=== PATIENT | male | born 1965 | race Caucasian/White ===

== ENCOUNTER 2018-09-16 10:55 | Emergency (ER) | payer OTHER ==
--- OUTSIDE RECORDS SUMMARY | 2018-09-16 11:03 | XMS REPORT ---
:1965 [facility] Address [address] [place] [address] Care Team Providers Name Role Phone Unavailable Unavailable Unavailable Problems This patient has no known problems. Allergies, Adverse Reactions, Alerts This patient has no known allergies or adverse reactions. Medications This patient has no known medications.
--- NOTE | 2018-09-16 11:29 | RAD REPORT ---
EXAM DESCRIPTION: CT - Stone Protocol - 09/16/2018 11:17 am CLINICAL HISTORY: Flank pain. lower abd pain, sudden onset COMPARISON: No comparisons TECHNIQUE: Axial images were obtained without oral or IV contrast. Lack of contrast limits solid org an and vascular assessment. The [id number] spans the entirety of the system partially obscuring uppermost abdomen and lung bases. Coronal reformatted images were obtained and reviewed. All CT scans are performed using dose optimization technique as appropriate and may include automated exposure control or mA/KV adjustment according to patient size. FINDINGS: The lower lung whalen are clear. Cholecystectomy. Imaged portions of the liver and spleen show no suspicious findings on non-contrast imaging. The panc reas and adrenal glands are normal. No pathologic lymphadenopathy in the abdomen or pelvis. No urinary tract stones or obstructive uropathy. No bowel obstruction, free air, free fluid or abscess. Normal appendix noted. Vacuum disc degeneration with degenerative changes in mild anterolisthesis of L5 on S1. IMPRESSION: No urinary tract stones or obstructive uropathy.
[2018-09-16] MEDS ORDERED: MORPHINE 4 MG/ML SYR ONE ×2 (11:30→12:42)
[2018-09-16] MEDS ORDERED: ONDANSETRON 4 MG/2 ML VIAL ONE (11:30)
[2018-09-16 11:33] LABS: Absolute Lymphocytes (CBC) 1.1 K/uL (0.7-4.9); Basophils % 0.4 % (0-1.3); Hematocrit 42.7 % (39.6-49.0); MPV 7.8 fL (7.6-11.3)
[2018-09-16 11:49] LABS: Albumin 4.2 g/dL (3.4-5.0); Bilirubin Direct 0.2 mg/dL (0-0.2); Bilirubin Total 0.8 mg/dL (0.2-1.0); Potassium 3.6 mmol/L (3.5-5.1); Protein, Total 7.7 g/dL (6.4-8.2)
[2018-09-16] MEDS ORDERED: NA CHLORIDE 0.9% 1,000 ML ONE ×2 (12:08→13:39)
--- NOTE | 2018-09-16 12:39 | RAD REPORT ---
EXAM DESCRIPTION: CTAbdomen Pelvis W Contrast - 09/16/2018 12:22 pm CLINICAL HISTORY: Abdominal pain. elevated lactate, IV contrast only, eval for vascular COMPARISON: Stone Protocol dated 09/16/2018 TECHNIQUE: Biphasic CT imaging of the abdomen and pelvis was performed with 100 ml non-ionic IV cont rast. All CT scans are performed using dose optimization technique as appropriate and may include automated exposure control or mA/KV adjustment according to patient size. FINDINGS: The lung bases are clear. Cholecystectomy. The liver, spleen, pancreas, adrenal glands and kidneys are within normal limits. No bowel obstruction, free air, free fluid or abscess. The appendix is normal. No evidence of signi ficant lymphadenopathy. No suspicious bony findings. IMPRESSION: No acute intra-abdominal or pelvic finding.
[2018-09-16 15:14] LABS: Urine Bacteria <20 /HPF (NONE SEEN); Urine Culture Reflex Order NOT NEEDED; Urine RBC <5 /HPF (NONE SEEN)
[2018-09-16 15:26] LABS: Urine Blood NEGATIVE (NEG); Urine Glucose NEGATIVE (NEG); Urine Protein NEGATIVE (NEG); Urine Specific Gravity 1.015 (1.005-1.030); Urine pH 8.5 (5.0-7.0)
--- NOTE | 2018-09-16 15:34 | ER ---
Nurse's Notes [facility] Name: Fred Gautam Age: 53 yrs Sex: Male : 1965 Arrival Date: 09/16/2018 Time: 10:59 Bed 6 Private MD: None, None Diagnosis: Lower abdominal pain, unspecified;Dehydration Presentation: 09/16 11:14 Acuity: MARTITA 2 sg 11:14 Presenting complaint: Patient states: started having stomach pain last night, it comes tw2 and goes. Transition of care: patient was not received from another setting of care. Onset of symptoms was September 16, 2018. Risk Assessment: Do you want to hurt yourself or someone else? Patient reports no desire to harm self or others. Care prior to arrival: None. 11:14 Method Of Arrival: Wheelchair tw2 11:29 Initial Sepsis Screen: Does the patient meet any 2 criteria? No. Patient's initial tw2 sepsis screen is negative. Does the patient have a suspected source of infection? No. Patient's initial sepsis screen is negative. Triage Assessment: 11:14 General: Appears uncomfortable, Behavior is anxious. Pain: Complains of pain in tw2 abdomen. GI: Reports lower abdominal pain, upper abdominal pain. Derm: Skin is diaphoretic. Historical: - Allergies: 11:22 No Known Allergies; tw2 - Home Meds: 11:22 Radiation for chemo [Active]; tw2 11:28 Plavix 75 mg Oral tab 1 tab once daily [Active]; Keppra 500 mg Oral tab 2 tabs 2 times tw2 per day [Active]; furosemide 20 mg Oral tab 1 tab once daily [Active]; propranolol 10 mg Oral tab 1 tab 2 times per day [Active]; pravastatin 20 mg oral tab 1 tab every other day [Active]; - PMHx: 11:22 CVA (2005); Cancer, prostrate; tw2 - PSHx: 11:28 Appendectomy; Cholecystectomy; tw2 - Immunization history:: Adult Immunizations. - Social history:: Smoking status: . - Family history:: not pertinent. - Ebola Screening: : Patient denies travel to an Ebola-affected area in the 21 days before illness onset. - Hospitalizations: : No recent hospitalization is reported. Screenin:28 Abuse screen: Denies threats or abuse. Nutritional screening: No deficits noted. tw2 Tuberculosis screening: No symptoms or risk factors identified. Fall Risk Secondary diagnosis (15 points) impaired mobility, CVA. Assessment: 11:29 General: Appears uncomfortable, Behavior is anxious. Pain: Complains of pain in tw2 abdomen. Neuro: Level of Consciousness is awake, alert, obeys commands, Oriented to person, place, time, situation. Cardiovascular: Heart tones S1 S2 Patient's skin is warm and dry. Respiratory: Airway is patent Respiratory effort is even, unlabored, Respiratory pattern is regular, symmetrical, Breath sounds are clear bilaterally. GI: Bowel sounds present X 4 quads. Abdomen is tender to palpation X 4 quads. Reports lower abdominal pain, upper abdominal pain. : No signs and/or symptoms were reported regarding the genitourinary system. EENT: No signs and/or symptoms were reported regarding the EENT system. Derm: No signs and/or symptoms reported regarding the dermatologic system. Musculoskeletal: Range of motion: limited in right shoulder, right elbow and right wrist. 11:30 Reassessment: pts spouse reports RIGHT sided weakness from previous CVA. tw2 12:59 Reassessment: Patient appears in no apparent distress at this time. Patient and/or tw2 family updated on plan of care and expected duration. Pain level reassessed. Patient is alert, oriented x 3, equal unlabored respirations, skin warm/dry/pink. 15:13 Reassessment: Patient appears in no apparent distress at this time. Patient and/or rv family updated on plan of care and expected duration. Pain level reassessed. Patient is alert, oriented x 3, equal unlabored respirations, skin warm/dry/pink. lactate came back normal. Vital Signs: 11:16 BP 143 / 121; Pulse 110; Resp 19; Temp 97.9(O); Pulse Ox 100% ; Weight 113.4 kg (R); tw2 Height 6 ft. 2 in. (187.96 cm); Pain 10/10; 11:26 Pulse 88; Resp 17; Pulse Ox 100% on R/A; sg 12:58 BP 154 / 87; Pulse 74; Resp 17; Pulse Ox 100% on R/A; tw2 14:20 BP 137 / 83; Pulse 83; Resp 17; Pulse Ox 98% on R/A; sg 15:12 BP 139 / 82; Pulse 94; Resp 16; Pulse Ox 98% on R/A; rv 15:45 BP 133 / 84; Pulse 88; Resp 18; Temp 98; Pulse Ox 100% on R/A; rv 11:16 Body Mass Index 32.10 (113.40 kg, 187.96 cm) tw2 ED Course: 10:59 Patient arrived in ED. dp 11:00 None, None is Private Physician. dp 11:00 Deepak Garcia MD is Attending Physician. rn 11:14 Triage completed. iw 11:14 Arm band placed on. tw2 11:14 Bed in low position. Call light in reach. Placed in gown. provider at bedside at this tw2 time. monitoring and evaluation advisor on. Pulse ox on. NIBP on. 11:16 Mere Barth RN is Primary Nurse. tw2 11:20 CT Stone Protocol In Process Unspecified. EDMS 12:25 CT Abd/Pelvis - IV Contrast Only In Process Unspecified. EDMS 13:40 Repeat lab(s) drawn. by ED staff, sent to lab. sg 15:46 No provider procedures requiring assistance completed. IV discontinued, intact, rv bleeding controlled, No redness/swelling at site. Pressure dressing applied. Administered Medications: 11:25 Drug: morphine 4 mg Route: IVP; Site: left antecubital; sg 12:00 Follow up: Response: No adverse reaction; Pain is decreased tw2 11:25 Drug: Zofran 4 mg Route: IVP; Site: left antecubital; sg 12:00 Follow up: Response: No adverse reaction; Nausea is decreased tw2 12:01 Drug: NS 0.9% 1000 ml Route: IV; Rate: 1 bolus; Site: left antecubital; sg 13:17 Follow up: Response: No adverse reaction; IV Status: Completed infusion; IV Intake: tw2 1000ml 12:26 Drug: morphine 4 mg Route: IVP; Site: left antecubital; tw2 13:17 Follow up: Response: No adverse reaction; Pain is decreased tw2 13:24 Drug: NS 0.9% 1000 ml Route: IV; Rate: 1 bolus; Site: left antecubital; tw2 Intake: 13:17 IV: 1000ml; Total: 1000ml. tw2 Outcome: 15:31 Discharge ordered by . rn 15:46 Discharged to home via wheelchair, with family. rv 15:46 Condition: improved 15:46 Discharge instructions given to patient, family, Instructed on discharge instructions, follow up and referral plans. medication usage, Demonstrated understanding of instructions, follow-up care, medications, Prescriptions given X 1. 15:47 Patient left the ED. rv Signatures: Dispatcher [employer] EDMS Monty Dallas RN RN sg Maribel Rankin RN RN Deepak Garcia MD MD rn Wise, Tara, RN RN 2 Keven Carpio RN RN Cordell Pascal Corrections: (The following items were deleted from the chart) 11:16 11:14 Acuity: MARTITA 3 iw 18 11:17 General: Appears uncomfortable, Behavior is anxious, tw2 tw2 18 11:17 Pain: Complains of pain in abdomen tw2 18 11:17 GI: Reports lower abdominal pain, upper abdominal pain, tw2 tw03 31: 11:17 Derm: Skin is diaphoretic, tw2 tw2
--- NOTE | 2018-09-16 15:34 | EDPHYS ---
Physician Documentation [facility] Name: Fred Gautam Age: 53 yrs Sex: Male : 1965 Arrival Date: 09/16/2018 Time: 10:59 Bed 6 Private MD: None, None ED Physician Deepak Garcia HPI: 09/16 11:22 This 53 yrs old Male presents to ER via Unassigned with complaints of rn Abdominal Pain, Pain All Over. 11:22 The patient presents with abdominal pain in the lower abdomen. Onset: The rn symptoms/episode began/occurred today. The symptoms do not radiate. Associated signs and symptoms: none. Pertinent negatives: chest pain, fever, shortness of breath, testicular pain, vomiting. Modifying factors: The symptoms are alleviated by nothing, the symptoms are aggravated by touching the area. Severity of pain: At its worst the pain was moderate in the emergency department the pain is unchanged. The patient has not experienced similar symptoms in the past. The patient has not recently seen a physician. Historical: - Allergies: 11:22 No Known Allergies; tw2 - Home Meds: 11:22 Radiation for chemo [Active]; tw2 11:28 Plavix 75 mg Oral tab 1 tab once daily [Active]; Keppra 500 mg Oral tab 2 tabs 2 times tw2 per day [Active]; furosemide 20 mg Oral tab 1 tab once daily [Active]; propranolol 10 mg Oral tab 1 tab 2 times per day [Active]; pravastatin 20 mg oral tab 1 tab every other day [Active]; - PMHx: 11:22 CVA (2005); Cancer, prostrate; tw2 - PSHx: 11:28 Appendectomy; Cholecystectomy; tw2 - Immunization history:: Adult Immunizations. - Social history:: Smoking status: . - Family history:: not pertinent. - Ebola Screening: : Patient denies travel to an Ebola-affected area in the 21 days before illness onset. - Hospitalizations: : No recent hospitalization is reported. ROS: 11:22 Constitutional: Negative for fever, chills, and weight loss, Eyes: Negative for injury, rn pain, redness, and discharge, Cardiovascular: Negative for chest pain, palpitations, and edema, Respiratory: Negative for shortness of breath, cough, wheezing, and pleuritic chest pain, Abdomen/GI: + lower abd pain Back: Negative for injury and pain, : Negative for injury, bleeding, discharge, and swelling, MS/Extremity: Negative for injury and deformity, Skin: Negative for injury, rash, and discoloration, Neuro: Negative for headache, weakness, numbness, tingling, and seizure. Exam: 11:22 Constitutional: This is a well developed, well nourished patient who is awake, alert, rn appears in acute pain Head/Face: Normocephalic, atraumatic. Eyes: Pupils equal round and reactive to light, extra-ocular motions intact. Lids and lashes normal. Conjunctiva and sclera are non-icteric and not injected. Cornea within normal limits. Periorbital areas with no swelling, redness, or edema. ENT: MMM Cardiovascular: tachycardic, regular, no murmur Respiratory: Mild tachypnea, clear bilaterally Abdomen/GI: soft, + tender in lower abdomen, no rebound or masses MS/ Extremity: Pulses equal, no cyanosis. Neurovascular intact. Full, normal range of motion. Equal circumference. Neuro: Awake and alert, GCS 15, oriented to person, place, time, and situation. Cranial nerves II-XII grossly intact. Motor strength 5/5 in all extremities. Sensory grossly intact. Vital Signs: 11:16 BP 143 / 121; Pulse 110; Resp 19; Temp 97.9(O); Pulse Ox 100% ; Weight 113.4 kg (R); tw2 Height 6 ft. 2 in. (187.96 cm); Pain 10/10; 11:26 Pulse 88; Resp 17; Pulse Ox 100% on R/A; sg 12:58 BP 154 / 87; Pulse 74; Resp 17; Pulse Ox 100% on R/A; tw2 14:20 BP 137 / 83; Pulse 83; Resp 17; Pulse Ox 98% on R/A; sg 15:12 BP 139 / 82; Pulse 94; Resp 16; Pulse Ox 98% on R/A; rv 15:45 BP 133 / 84; Pulse 88; Resp 18; Temp 98; Pulse Ox 100% on R/A; rv 11:16 Body Mass Index 32.10 (113.40 kg, 187.96 cm) tw2 MDM: 11:00 Patient medically screened. rn 15:29 Differential diagnosis: bowel obstruction, gastritis, gastroesophageal reflux disease, rn non-specific abd pain, pancreatitis, Ureterolithiasis, urinary tract infection. Data reviewed: vital signs, nurses notes, lab test result(s), radiologic studies, CT scan, and as a result, I will discharge patient. Counseling: I had a detailed discussion with the patient and/or guardian regarding: the historical points, exam findings, and any diagnostic results supporting the discharge/admit diagnosis, lab results, radiology results, the need for outpatient follow up, to return to the emergency department if symptoms worsen or persist or if there are any questions or concerns that arise at home. Response to treatment: the patient's symptoms have markedly improved after treatment, the patient's condition has returned to base line, the patient is now symptom free, patient is well hydrated. and as a result, I will discharge patient. Special discussion: Based on the patient's Hx, exam, and Dx evaluation, there is no indication for emergent surgery or inpatient Tx. It is understood by the patient/guardian that if the Sx's persist or worsen they need to return immediately for re-evaluation. I discussed with the patient/guardian in detail that at this point there is no indication for admission to the hospital. It is understood, however, that if the symptoms persist or worsen the patient needs to return immediately for re-evaluation. ED course: Lactate was elevated, thought to be from dehydration, given 2 L bolus and pain meds after [address] abdomen with and without contrast, repeat lactate normal. Pain free. will dc home with pain meds and instructions for fluid intake and pcp f/u. . 09/16 11: Order name: Basic Metabolic Panel; Complete Time: rn 09/16 11:06 Order name: CBC with Diff; Complete Time: 09/16 11:06 Order name: Creatinine for Radiology; Complete Time: rn 09/16 11:06 Order name: Hepatic Function; Complete Time: rn 09/16 11:06 Order name: Lipase; Complete Time: 09/16 11:06 Order name: Lactate; Complete Time: 09/16 11:06 Order name: CT Stone Protocol; Complete Time: : rn 09/16 11:06 Order name: Urine Culture rn 09/16 11:06 Order name: Urine Microscopic Only; Complete Time: 15:32 rn 09/16 11:52 Order name: CT Abd/Pelvis - IV Contrast Only; Complete Time: 12:41 rn 09/16 14:28 Order name: Urine Dipstick--Ancillary (enter results); Complete Time: 15:32 em1 09/16 15:00 Order name: Lactate Sepsis 2 HR Follow-up; Complete Time: 15:04 EDMS 09/16 11:06 Order name: IV Saline Lock; Complete Time: 11: rn 09/16 11:06 Order name: Labs collected and sent; Complete Time: 11: rn 09/16 11:06 Order name: Urine Dipstick-Ancillary (obtain specimen); Complete Time: 14: rn 09/16 11:06 Order name: Bladder Scanner; Complete Time: 11:10 rn Administered Medications: 11:25 Drug: morphine 4 mg Route: IVP; Site: left antecubital; sg 12:00 Follow up: Response: No adverse reaction; Pain is decreased tw2 11:25 Drug: Zofran 4 mg Route: IVP; Site: left antecubital; sg 12:00 Follow up: Response: No adverse reaction; Nausea is decreased tw2 12:01 Drug: NS 0.9% 1000 ml Route: IV; Rate: 1 bolus; Site: left antecubital; sg 13:17 Follow up: Response: No adverse reaction; IV Status: Completed infusion; IV Intake: tw2 1000ml 12:26 Drug: morphine 4 mg Route: IVP; Site: left antecubital; tw2 13:17 Follow up: Response: No adverse reaction; Pain is decreased tw2 13:24 Drug: NS 0.9% 1000 ml Route: IV; Rate: 1 bolus; Site: left antecubital; tw2 Disposition: 09/16/18 15:31 Discharged to Home. Impression: Lower abdominal pain, unspecified, Dehydration. - Condition is Stable. - Discharge Instructions: Abdominal Pain, Adult, Dehydration, Adult. - Prescriptions for Ultram 50 mg Oral Tablet - take 1 tablet by ORAL route every 6 hours As needed; 15 tablet. - Medication Reconciliation Form, Thank You Letter, Antibiotic Education, Prescription Opioid Use form. - Follow up: Private Physician; When: As needed; Reason: Recheck today's complaints, Re-evaluation by your physician. - Problem is new. - Symptoms have improved. Signatures: Dispatcher [employer] EDMonty King RN RN sg Deepak Garcia MD MD rn Wise, Tara, RN RN tw2 Keven Carpio RN RN rv Corrections: (The following items were deleted from the chart) 15:47 15:31 09/16/2018 15:31 Discharged to Home. Impression: Lower abdominal pain, rv unspecified; Dehydration. Condition is Stable. Forms are Medication Reconciliation Form, Thank You Letter, Antibiotic Education, Prescription Opioid Use. Follow up: Private Physician; When: As needed; Reason: Recheck today's complaints, Re-evaluation by your physician. Problem is new. Symptoms have improved. rn
== END 2018-09-16 15:47 | disposition home or self-care (01) ==
LOC: ER 10:55
DX: R10.30 Lower abdominal pain, unspecified (principal); E86.0 Dehydration; Z86.73 Personal history of transient ischemic attack (TIA), and cerebral infarction without residual deficits; C61 Malignant neoplasm of prostate
CPT/HCPCS: 87088; 85025; 87086; 80048; 36415; 80076; 83605 ×2; 83690; 76377; 74176; 74177; Q9967; J7030 ×2; J2405; 81003; 81015; 96361; 96374; 96375; 99284

== ENCOUNTER 2019-07-20 14:22 | Inpatient (IN) | payer OTHER ==
[2019-07-20] MEDS ORDERED: MORPHINE 2 MG/ML SYR ONE ×2 (15:32→16:27)
--- NOTE | 2019-07-20 16:15 | RAD REPORT ---
EXAM DESCRIPTION: RAD - Pelvis - 07/20/2019 4:09 pm CLINICAL HISTORY: fall Fall, right-sided hip pain COMPARISON: None FINDINGS: AP pelvis and right femur- multiple projections are submitted Subcapital fracture is seen of the proximal right femur with varus angulation. No dislocation or AVN seen.
--- NOTE | 2019-07-20 16:16 | RAD REPORT ---
EXAM DESCRIPTION: RAD - Chest Single View - 07/20/2019 4:10 pm CLINICAL HISTORY: fall Chest pain. COMPARISON: CHEST SINGLE VIEW dated 08/05/2010 FINDINGS: Portable technique limits examination quality. The lungs are grossly clear. The heart is normal in size. No displaced fractures. IMPRESSION: No acute intrathoracic process suspected.
[2019-07-20] MEDS ORDERED: HYDROMORPHONE HCL 1 MG/ML INJ ONE (16:55)
--- NOTE | 2019-07-20 17:49 | P.HP ---
Certification for Inpatient Patient admitted to: Inpatient With expected LOS: >2 Midnights Patient will require the following post-hospital care: Rehabilitation Practitioner: I am a practitioner with admitting privileges, knowledge of patient current condition, hospital course, and medical plan of care. Services: Services provided to patient in accordance with Admission requirements found in Title 42 Section 412.3 of the Code of Federal Regulations Patient History Date of Service: 07/20/19 Primary Care Provider: [facility] Reason for admission: Right femur fracture History of Present Illness: 54-year-old male with history of CVA with residual right-sided weakness, hypertension and chronic CHF. Patient presented to the emergency room after he was sent from orthopedic office due to a right femoral neck fracture. Patient apparently had been seen at [facility] ER after a fall. He was told at that that time that he did not have a fracture. ER reports that he did have a fracture but family wanted a specific doctor. That specific doctor was not available. The patient left to be seen as an outpatient. Patient made an appointment with orthopedic surgeon. Orthopedic recommended the patient to be transferred to the ER instead of going to the office due to hip fracture. Patient evaluated in emergency room, vital signs stable. Pain seems to be well controlled. Patient admitted for further evaluation and treatment. Patient seen and evaluated by orthopedics. Orthopedics desires for the hospitalist team to admit and to address medical issues. Lab pending at this time. When I saw the patient the ER, pain seems to be controlled. He is sitting up in the bed. Mother at bedside. Patient lives with mother.. Home medications list reviewed: Yes - Past Medical/Surgical History -: Hx of CVA with residual right sided weakness -: HTN -: CHF -: Cholecystectomy Psychosocial/ Personal History: Patient lives with mother - Family History Family History: Reviewed- Non-Contributory - Social History Smoking Status: Never smoker Alcohol use: No CD- Drugs: No Caffeine use: Yes Place of Residence: Home Review of Systems General: As per HPI Eyes: Unremarkable ENT: Unremarkable Respiratory: Unremarkable Cardiovascular: Unremarkable Gastrointestinal: Unremarkable Genitourinary: Unremarkable Musculoskeletal: As per HPI Integumentary: Unremarkable Neurological: Unremarkable Lymphatics: Unremarkable Physical Examination - Physical Exam General: Alert, In no apparent distress, Oriented x3, Cooperative HEENT: Atraumatic, Normocephalic Neck: Supple Respiratory: Clear to auscultation bilaterally, Normal air movement Cardiovascular: Normal pulses, Regular rate/rhythm Gastrointestinal: Normal bowel sounds, Soft and benign, Non-distended, No tenderness, No masses, No rebound, No guarding Musculoskeletal: Other (Right hip pain noted. Patient with residual right-sided weakness) Integumentary: No tenderness/swelling, No warmth Neurological: Normal speech, Normal tone, Normal affect, Abnormal strength (Right-sided residual weakness) Assessment and Plan - Plan Impression: Fall leading to right proximal femoral fracture History CVA with right-sided residual weakness Hypertension Chronic diastolic CHF Plan: Fall leading to right proximal femoral fracture: Patient will be admitted for further evaluation and treatment. Patient seen by orthopedics. Surgery is planned for tomorrow. Will obtain lab. Will provide medication for pain. Will provide DVT prophylaxis. Will discuss further with orthopedics. Patient will likely require inpatient rehab after surgery. Will discuss with social media developer. History CVA with right-sided residual weakness: Will nee to obtain and restart home medication. Patient apparently takes Plavix. Will hold medication in preparation for surgery. Hypertension: Will need to obtain and restart home medication Chronic diastolic CHF: Obtain and restart home medication. Discharge Plan: Other (Inpatient rehab) Plan to discharge in: Greater than 2 days - Advance Directives Does patient have a Living Will: No Does patient have a Durable POA for Healthcare: No - Code Status/Comfort Care Code Status Assessed: Yes (Patient is full code) Time Spent Managing Pts Care (In Minutes): 55
[2019-07-20 18:52] LABS: Absolute Lymphocytes (CBC) 0.6 K/uL (0.7-4.9); Basophils % 0.5 % (0-1.3); Hematocrit 39.5 % (39.6-49.0); Lymphocytes % 7.4 % (15.3-44.8); MPV 8.7 fL (7.6-11.3); RBC Red Blood Cell Count 4.29 M/uL (4.33-5.43)
[2019-07-20 19:10] LABS: Protime INR 1.16
[2019-07-20 19:13] LABS: ALT/SGPT 111 U/L (12-78); AST/SGOT 107 U/L (15-37); Albumin 3.6 g/dL (3.4-5.0); Alkaline Phosphatase 199 U/L (45-117); BUN Blood Urea Nitrogen 23 mg/dL (7-18); Bicarbonate 27 mmol/L (21-32); Bilirubin Direct 0.3 mg/dL (0-0.2); Bilirubin Total 0.9 mg/dL (0.2-1.0); Glucose Level 116 mg/dL (74-106); Magnesium 2.3 mg/dL (1.8-2.4); Potassium 3.4 mmol/L (3.5-5.1); Protein, Total 7.6 g/dL (6.4-8.2); Sodium Level 142 mmol/L (136-145)
--- NOTE | 2019-07-20 20:19 | ER ---
Nurse's Notes [facility] Name: Fred Gautam Age: 54 yrs Sex: Male : 1965 Arrival Date: 07/20/2019 Time: 14:29 Bed 13 Private MD: None, None Diagnosis: Fracture of unspecified part of neck of right femur Presentation: 07/19 14:49 Chief complaint: Patient states: Fall 6 days ago. Was called by [facility] and ll1 told it was a femur fracture 2 days later. Coronavirus screen: Proceed with normal triage. Patient denies a cough. Patient denies shortness of breath or difficulty breathing. Patient denies measured and/or subjective temperature greater than 100.4F prior to today's visit. Patient denies travel on a cruise ship or to a country the [facility] currently lists as an affected area. Patient denies contact with known and/or suspected case of COVID-19. Ebola Screen: Patient denies travel to an Ebola-affected area in the 21 days before illness onset. Initial Sepsis Screen: Does the patient meet any 2 criteria? No. Patient's initial sepsis screen is negative. Risk Assessment: Do you want to hurt yourself or someone else? Patient reports no desire to harm self or others. Onset of symptoms was July 13, 2019. 14:49 Method Of Arrival: Wheelchair ll1 14:49 Acuity: MARTITA 3 ll1 15:00 Initial Sepsis Screen: Does the patient have a suspected source of infection? No. vc Patient's initial sepsis screen is negative. Triage Assessment: 17:00 General: Appears in no apparent distress. uncomfortable, Behavior is calm, cooperative. vc Pain: Complains of pain in right hip Pain currently is 10 out of 10 on a pain scale. Quality of pain is described as sharp, shooting, stabbing. Musculoskeletal: Range of motion: limited in right shoulder and right hip. Injury Description: Patient fell at home. Historical: - Allergies: 14:53 No Known Allergies; ll1 - Home Meds: 15:29 pravastatin 20 mg Oral tab 1 tab HS daily [Active]; furosemide 20 mg Oral tab 1 tab ll1 once daily [Active]; propranolol 10 mg Oral tab 1 tab 2 times per day [Active]; Keppra 500 mg Oral tab 2 tabs 2 times per day [Active]; Plavix 75 mg Oral tab 1 tab once daily [Active]; 15:30 D3 daily [Active]; stool softner [Active]; Centrum Silver Ultra Men's 300-600-300 mcg ll1 oral tab daily [Active]; - PMHx: 14:53 Cancer, prostrate; CVA (2005); Hypertension; High Cholesterol; ll1 - PSHx: 14:53 Appendectomy; Cholecystectomy; ll1 - Immunization history:: Adult Immunizations up to date. - Social history:: Smoking status: Patient denies any tobacco usage or history of. Screenin:00 Abuse screen: Denies threats or abuse. Nutritional screening: No deficits noted. vc Tuberculosis screening: No symptoms or risk factors identified. Fall Risk None identified. No fall in past 12 months (0 pts). Secondary diagnosis (15 points) impaired mobility, CVA, IV access (20 points). Ambulatory Aid- Furniture (30 pts.). Gait- Impaired (20 pts.). Mental Status- Oriented to own ability (0 pts). Assessment: 15:00 General: Appears in no apparent distress. uncomfortable, obese, Behavior is vc cooperative. Pain: Complains of pain in right hip Pain currently is 10 out of 10 on a pain scale. Quality of pain is described as sharp, shooting, stabbing, Pain began 1 day ago. Is continuous, Aggravated by increased activity, repositioning, weight bearing. Cardiovascular: Capillary refill < 3 seconds Patient's skin is warm and dry. GI: No signs and/or symptoms were reported involving the gastrointestinal system. : No signs and/or symptoms were reported regarding the genitourinary system. Musculoskeletal: Circulation, motion, and sensation intact. Range of motion: limited in right shoulder and right hip. 16:00 Reassessment: Patient appears in no apparent distress at this time. Patient and/or vc family updated on plan of care and expected duration. Pain level reassessed. Patient states symptoms have not improved. 17:00 Reassessment: Patient appears in no apparent distress at this time. Patient and/or vc family updated on plan of care and expected duration. Pain level reassessed. Patient states symptoms have not improved. 18:00 Reassessment: Patient appears in no apparent distress at this time. Patient and/or vc family updated on plan of care and expected duration. Pain level reassessed. Patient states feeling better. Patient states symptoms have improved. 19:00 Reassessment: Patient appears in no apparent distress at this time. No changes from vc previously documented assessment. Patient and/or family updated on plan of care and expected duration. Pain level reassessed. 20:00 Reassessment: Patient appears in no apparent distress at this time. Patient and/or vc family updated on plan of care and expected duration. Pain level reassessed. Patient is alert, oriented x 3, equal unlabored respirations, skin warm/dry/pink. Patient states feeling better. Patient states symptoms have improved. Respiratory: Airway is patent Respiratory effort is even, unlabored, Respiratory pattern is regular, symmetrical. 20:57 Reassessment: Patient appears comfortable at this time, mother at bedside; Aware of lp1 pending admission to floor. Neuro: Level of Consciousness is awake, alert, obeys commands, Speech with expressive aphasia noted, from previous CVA. Respiratory: Respiratory effort is even, unlabored. Derm: Skin is intact, Skin is dry, Skin is normal. Vital Signs: 14:49 BP 139 / 98; Pulse 88; Resp 18; Temp 98.5; Pulse Ox 100% ; ll1 14:49 Pain 6/10; ll1 20:53 BP 136 / 91; Pulse 89; Resp 18; Temp 97.6(TE); Pulse Ox 99% on R/A; Pain 0/10; lp1 ED Course: 14:29 Patient arrived in ED. mr 14:29 None, None is Private Physician. mr 14:51 Triage completed. ll1 14:53 Arm band placed on Patient placed in an exam room, on a stretcher. ll1 14:57 Trevor Malone PA is PHCP. cp 14:58 Trevor Conway MD is Attending Physician. cp 15:19 Ivone Dewitt, RN is Primary Nurse. vc 15:30 Inserted saline lock: 22 gauge in left antecubital area, using aseptic technique. vc 16:12 XRAY Pelvis In Process Unspecified. EDMS 16:12 XRAY Chest (1 view) In Process Unspecified. EDMS 16:12 XRAY Femur RIGHT In Process Unspecified. EDMS 17:10 Giovanni Julien DO is Hospitalizing Provider. cp 18:08 EKG done, by ED staff, reviewed by Trevor OSEI. jp3 18:09 Placed in gown. Bed in low position. Call light in reach. Adult w/ patient. Warm jp3 blanket given. Diet tray given. Verbal reassurance given. Pulse ox on. NIBP on. 06 01:35 No provider procedures requiring assistance completed. Patient admitted, IV remains in vc place. Administered Medications: 07/19 15:36 Drug: morphine 2 mg Route: IVP; Site: left antecubital; vc 16:26 Drug: morphine 2 mg Route: IVP; Site: left antecubital; vc 16:53 Drug: Dilaudid 1 mg Route: IVP; Site: left antecubital; vc Outcome: 17:12 Decision to Hospitalize by Provider. cp 20:56 Admitted to Med/surg room 232, with chart, Report called to JORDAN Clemens lp1 20:56 Condition: stable 20:56 Instructed on the need for admit. 21:36 Patient left the ED. vc Signatures: Dispatcher [employer] EDMS Goldie Escobar Laura, RN RN lp1 Trevor Malone PA PA cp Pisarski, Jacob jp3 Ivone Dewitt RN RN vc Lewis, Lynsay, RN RN ll1
--- NOTE | 2019-07-20 20:19 | EDPHYS ---
Physician Documentation [facility] Name: Fred Gautam Age: 54 yrs Sex: Male : 1965 Arrival Date: 07/20/2019 Time: 14:29 Bed 13 Private MD: None, None ED Physician Trevor Conway HPI: 07/19 15:15 This 54 yrs old Male presents to ER via Wheelchair with complaints of Leg cp Injury, Fall Injury. 15:15 The patient presents with an injury, pain, that is acute. cp 15:15 The complaints affect the right upper leg. Context: resulted from the patient falling, cp while walking, the patient can partially bear weight, the patient is able to ambulate, with moderate difficulty. Onset: The symptoms/episode began/occurred 6 day(s) ago. The patient has been recently seen by a physician: in [place] ED, 5 day(s) ago, with similar presenting complaints, X-rays were performed. Historical: - Allergies: 14:53 No Known Allergies; ll1 - Home Meds: 15:29 pravastatin 20 mg Oral tab 1 tab HS daily [Active]; furosemide 20 mg Oral tab 1 tab ll1 once daily [Active]; propranolol 10 mg Oral tab 1 tab 2 times per day [Active]; Keppra 500 mg Oral tab 2 tabs 2 times per day [Active]; Plavix 75 mg Oral tab 1 tab once daily [Active]; 15:30 D3 daily [Active]; stool softner [Active]; Centrum Silver Ultra Men's 300-600-300 mcg ll1 oral tab daily [Active]; - PMHx: 14:53 Cancer, prostrate; CVA (2005); Hypertension; High Cholesterol; ll1 - PSHx: 14:53 Appendectomy; Cholecystectomy; ll1 - Immunization history:: Adult Immunizations up to date. - Social history:: Smoking status: Patient denies any tobacco usage or history of. ROS: 15:20 MS/extremity: Positive for injury or acute deformity, pain, of the right upper leg, cp Negative for deformity, paresthesias. 15:20 Neuro: Negative for altered mental status, headache, loss of consciousness, syncope, cp weakness. 15:20 Constitutional: Negative for body aches, chills, fever. cp 15:20 Eyes: Negative for injury, pain, redness, and discharge. cp 15:20 ENT: Negative for ear pain, sore throat, difficulty swallowing, difficulty handling secretions. 15:20 Neck: Negative for pain with movement, pain at rest, stiffness. 15:20 Cardiovascular: Negative for chest pain. 15:20 Respiratory: Negative for cough, shortness of breath, wheezing. 15:20 Abdomen/GI: Negative for abdominal pain, nausea, vomiting, and diarrhea. 15:20 Back: Negative for pain at rest, pain with movement. 15:20 All other systems are negative. Exam: 15:25 Constitutional: The patient appears in no acute distress, alert, awake, cp non-diaphoretic, non-toxic, well developed, well nourished, uncomfortable. 15:25 Head/Face: Normocephalic, atraumatic. cp 15:25 Eyes: Periorbital structures: appear normal, Conjunctiva: normal, no exudate, no injection, Lids and lashes: appear normal, bilaterally. 15:25 ENT: External ear(s): are unremarkable, Nose: is normal, Mouth: Lips: moist, Oral mucosa: moist, Posterior pharynx: Airway: no evidence of obstruction, patent. 15:25 Neck: C-spine: vertebral tenderness, is not appreciated, crepitus, is not appreciated, ROM/movement: is normal, is supple, without pain, no range of motions limitations. 15:25 Chest/axilla: Inspection: normal, Palpation: is normal, no crepitus, no tenderness. 15:25 Cardiovascular: Rate: normal, Rhythm: regular, Pulses: Pulses are 2+ in right radial artery, right dorsalis pedis artery, left radial artery and left dorsalis pedis artery. JVD: is not appreciated. 15:25 Respiratory: the patient does not display signs of respiratory distress, Respirations: normal, no use of accessory muscles, no retractions, labored breathing, is not present, Breath sounds: are clear throughout, no decreased breath sounds, no stridor, no wheezing. 15:25 Abdomen/GI: Inspection: abdomen appears normal, Bowel sounds: active, all quadrants, Palpation: abdomen is soft and non-tender, in all quadrants, rebound tenderness, is not appreciated, voluntary guarding, is not appreciated, involuntary guarding, is not appreciated. 15:25 Back: pain, is absent, vertebral tenderness, is not appreciated. 15:25 Musculoskeletal/extremity: Extremities: grossly normal except: noted in the right upper leg: pain, tenderness, There is no evidence of decreased ROM, deformity, ROM: limited passive range of motion due to pain, in the right hip, Perfusion: the extremity is normally perfused throughout, the right leg Sensation intact. 15:25 Skin: cellulitis, is not appreciated, no rash present. 15:25 Neuro: Orientation: to person, place \T\ time. Mentation: is normal, Motor: no acute changes, weakness, partial contraction right arm from previous CVA. 18:00 ECG was reviewed by the Attending Physician. cp Vital Signs: 14:49 BP 139 / 98; Pulse 88; Resp 18; Temp 98.5; Pulse Ox 100% ; ll1 14:49 Pain 6/10; ll1 20:53 BP 136 / 91; Pulse 89; Resp 18; Temp 97.6(TE); Pulse Ox 99% on R/A; Pain 0/10; lp1 MDM: 14:58 Patient medically screened. alexus 15:30 Differential diagnosis: closed fracture, contusion, dislocation, multiple trauma. cp 16:39 Test interpretation: by ED physician or midlevel provider: xrays of right femur show cp right femoral neck fracture. 16:48 Physician consultation: Monty Fernandez MD was contacted at 16:45, regarding patient's cp condition, and will see patient in ED, shortly. 17:10 Data reviewed: vital signs, nurses notes, radiologic studies, plain films, and as a cp result, I will admit patient. 17:10 Physician consultation: Giovanni Julien DO was called at 17:05, was contacted at 17:05, cp regarding admission, to the telemetry unit. patient's condition. 07/19 17:10 Order name: Basic Metabolic Panel; Complete Time: 20:10 cp 07/19 20:10 Interpretation: Normal except: K 3.4; GLUC 116; BUN 23. cp 07/19 17:10 Order name: CBC with Diff; Complete Time: 20:10 cp 07/19 20:10 Interpretation: Normal except: RBC 4.29; HGB 13.4; HCT 39.5; JOY% 84.2; LYM% 7.4; LYMA cp 0.6. 07/19 17:10 Order name: LFT's; Complete Time: 20:10 cp 07/19 20:10 Interpretation: Normal except: AST 107; ALT 111; ALK 199; BILID 0.3; GLOB 4.0; A/G 0.9. cp 06 17:10 Order name: Magnesium; Complete Time: 20:10 cp 07/19 17:10 Order name: PT-INR; Complete Time: 20:10 cp 07/19 17:12 Order name: Ptt, Activated; Complete Time: 20:10 cp 07/19 15:16 Order name: IV; Complete Time: 15:36 cp 07/19 15:16 Order name: XRAY Pelvis cp 07/19 15:16 Order name: XRAY Chest (1 view) cp 07/19 15:16 Order name: XRAY Femur RIGHT cp 07/19 17:10 Order name: EKG; Complete Time: 17:11 cp 07/19 17:13 Order name: Diet Regular; Complete Time: 17:14 cp 07/19 17:10 Order name: Cardiac monitoring; Complete Time: 18:09 cp 07/19 17:10 Order name: EKG - Nurse/Tech; Complete Time: 18:09 cp 07/19 17:10 Order name: Labs collected and sent; Complete Time: 18:09 cp 07/19 17:10 Order name: O2 Per Protocol; Complete Time: 18:09 cp 07/19 17:10 Order name: O2 Sat Monitoring; Complete Time: 18:09 cp EC:00 Rate is 99 beats/min. Rhythm is regular. MT interval is normal. QRS interval is normal. cp QT interval is prolonged at 530 msec. T waves are Inverted in lead V3. Interpreted by me. Reviewed by me. Administered Medications: 15:36 Drug: morphine 2 mg Route: IVP; Site: left antecubital; vc 16:26 Drug: morphine 2 mg Route: IVP; Site: left antecubital; vc 16:53 Drug: Dilaudid 1 mg Route: IVP; Site: left antecubital; vc Disposition: 07/20 12:55 Co-signature as Attending Physician, Trevor Conway MD I agree with the assessment and alexus plan of care. Disposition: 07/20/19 17:12 Hospitalization ordered by Giovanni Julien for Inpatient Admission. Preliminary diagnosis is Fracture of unspecified part of neck of right femur. - Bed requested for Telemetry/MedSurg (Inpatient). - Status is Inpatient Admission. vc - Condition is Stable. - Problem is new. - Symptoms have improved. Signatures: Dispatcher [employer] EDMS Lashawn Blankenship Trevor Jaquez MD MD cha Page, Corey, PA PA cp Ivone Dewitt RN RN Marni Post RN RN ll1 Corrections: (The following items were deleted from the chart) 07/19 18:30 17:12 Hospitalization Ordered by Giovanni Julien DO for Inpatient Admission. Preliminary bd diagnosis is Fracture of unspecified part of neck of right femur. Bed requested for Telemetry/MedSurg (Inpatient). Status is Inpatient Admission. Condition is Stable. Problem is new. Symptoms have improved. cp 21:36 18:30 07/20/2019 17:12 Hospitalization Ordered by Giovanni Julien DO for Inpatient vc Admission. Preliminary diagnosis is Fracture of unspecified part of neck of right femur. Bed requested for Telemetry/MedSurg (Inpatient). Status is Inpatient Admission. Condition is Stable. Problem is new. Symptoms have improved. bd 07/20 15:31 07/19 15:20 All other systems are negative, cp cp
[2019-07-20] MEDS ORDERED: TRAMADOL HCL 50 MG TAB PO PRN (21:30)
[2019-07-20] MEDS ORDERED: HYDRALAZINE HCL 20 MG/ML VIAL IV PRN (21:30)
[2019-07-20] MEDS: ENOXAPARIN 40 MG/0.4 ML SQ SCH (21:30)
[2019-07-20] MEDS ORDERED: ACETAMINOPHEN 500 MG TAB PO PRN (21:30)
[2019-07-20] MEDS ORDERED: ONDANSETRON 4 MG/2 ML VIAL IV PRN (21:30)
[2019-07-20] MEDS: MORPHINE 2 MG/ML SYR IV PRN (23:07)
[2019-07-21 01:59] VITALS: BMI 29.8
--- NOTE | 2019-07-21 03:48 | CON ---
Date of Consultation: 07/20/2019 This is my first time seeing this patient to my knowledge. He is a 54-year-old male who unfortunatel y fell some time ago. He was seen in the emergency department at an outside facility where x-rays we re taken which demonstrated perhaps a suspected femoral neck fracture on his KUB; however, did not re ally see any dedicated hip views. He was then sent home. Family says that he was called a few days later and told that he had a broken hip. They decided to make an appointment to see me in my office and made an appointment to see me today. I reviewed his films prior to his visit and was found to gamino ve an obvious right-sided displaced femoral neck fracture. Therefore, called the family, told him to go to the emergency department. Noting in the emergency department, he was complaining of significa nt right-sided hip pain and apparently this has been going on for quite some time. X-rays were revie wed, taken today which demonstrate an obvious subacute right femoral neck fracture which is displaced . I spoke with the patient and his family. They state that he is normally ambulatory; although, he does ambulate short distances and he is in quite a bit of pain. He does have a history of a CVA and other medical issues. He is on Plavix. I discussed with the patient and the family, risks, benefits , and alternatives of treating this and at this time, recommend he be admitted to the hospital under the care of the hospitalist to undergo medical evaluation for probable bipolar hemiarthroplasty edith pierce. We did discuss possible total hip arthroplasty, open reduction and internal fixation; however, given the patient's low functional demand, we will proceed with bipolar hemiarthroplasty per wishes o f the patient. All other questions were otherwise invited and answered. /DARCY Voice ID: [id number] Report ID: [id number]
[2019-07-21] MEDS: MORPHINE 2 MG/ML SYR IV PRN (04:30)
[2019-07-21] MEDS ORDERED: MORPHINE 2 MG/ML SYR IV ONE (05:08)
[2019-07-21] MEDS ORDERED: HYDROMORPHONE HCL 1 MG/ML INJ IV ONE (05:23)
[2019-07-21] MEDS ORDERED: FENTANYL CITR 100 MCG/2 ML IV ONE (06:39)
[2019-07-21 06:57] LABS: Absolute Lymphocytes (CBC) 0.7 K/uL (0.7-4.9); Basophils % 0.6 % (0-1.3); Hematocrit 38.5 % (39.6-49.0); Lymphocytes % 13.4 % (15.3-44.8); MPV 8.6 fL (7.6-11.3); RBC Red Blood Cell Count 4.19 M/uL (4.33-5.43)
[2019-07-21 07:04] LABS: BUN Blood Urea Nitrogen 21 mg/dL (7-18); Bicarbonate 24 mmol/L (21-32); Glucose Level 92 mg/dL (74-106); Magnesium 2.5 mg/dL (1.8-2.4); Potassium 3.3 mmol/L (3.5-5.1); Sodium Level 140 mmol/L (136-145)
[2019-07-21] MEDS: ENOXAPARIN 40 MG/0.4 ML SQ SCH (09:00)
[2019-07-21] MEDS: KCL 20 MEQ/100 mL IVPB 20 MEQ/100 ML BAG IV SCH ×4 (09:03→23:00)
[2019-07-21] MEDS ORDERED: NA CHLORIDE 0.9% 250 ML ONE ×2 (09:08→23:05)
[2019-07-21] MEDS: HYDROMORPHONE HCL 1 MG/ML INJ IV PRN ×2 (10:04→15:08)
--- NOTE | 2019-07-21 11:58 | P.PN ---
Subjective Date of Service: 07/21/19 Primary Care Provider: VAMANDY Chief Complaint: Right femur fracture Subjective: No new changes Review of Systems General: Unremarkable Eyes: Unremarkable ENT: Unremarkable Respiratory: Unremarkable Cardiovascular: Unremarkable Gastrointestinal: Unremarkable Genitourinary: Unremarkable Musculoskeletal: As per HPI (Patient with pain to the right lower extremity, weakness to right upper and right lower extremity secondary to previous CVA) Integumentary: Unremarkable Neurological: As per HPI Physical Examination - Vital Signs Temperature: 97.5 F Blood Pressure: 153/78 Pulse: 89 Respirations: 18 Pulse Ox (%): 97 - Physical Exam General: Alert, In no apparent distress, Oriented x3 HEENT: Atraumatic, Normocephalic Neck: Supple Respiratory: Clear to auscultation bilaterally, Normal air movement Cardiovascular: No edema Capillary refill: <2 Seconds Gastrointestinal: Normal bowel sounds, Soft and benign Musculoskeletal: No clubbing, Other (Swelling to right lower extremity secondary to right femur fracture.) Integumentary: No erythema, No warmth Neurological: Abnormal speech (Patient with speech changes from previous CVA.), Abnormal strength (Patient with right-sided weakness from previous CVA.) Lymphatics: No axilla or inguinal lymphadenopathy Assessment & Plan Discharge Plan: [facility] Plan to discharge in: 48 Hours - Code Status/Comfort Care Code Status Assessed: Yes (Patient is full code) Physician Review Additional Text: Impression: Fall leading to right proximal femoral fracture History CVA with right-sided residual weakness Hypertension Chronic diastolic CHF Plan: Fall leading to right proximal femoral fracture: Patient will be admitted for further evaluation and treatment. Patient seen by orthopedics. Surgery is planned for today and the evening. Will provide medication for pain. Will provide DVT prophylaxis. Will discuss further with orthopedics. Patient will likely require inpatient rehab after surgery. Will discuss with professor of social work. Family wishes to have patient complete physical therapy in [place] if possible. Will discuss with professor of social work. History CVA with right-sided residual weakness: Will nee to obtain and restart home medication. Patient apparently takes Plavix. Will hold medication in preparation for surgery. Hypertension: Will need to obtain and restart home medication Chronic diastolic CHF: Obtain and restart home medication. Critical Care: No Time Spent Managing Pts Care (In Minutes): 55
[2019-07-21] MEDS ORDERED: TRANEXAMIC ACID 1,000 MG in NA CHLORIDE 0.9% 50 ML IV SCH (14:00)
[2019-07-21] MEDS ORDERED: ROCURONIUM 50 MG/5 ML VIAL IV ONE ×3 (15:18→20:23)
[2019-07-21] MEDS ORDERED: MIDAZOLAM HCL 2 MG/2 ML INJ ONE ×2 (15:18→18:23)
[2019-07-21] MEDS ORDERED: propofoL 200 MG/20 ML VIAL IV ONE ×2 (15:18→18:23)
[2019-07-21] MEDS ORDERED: FENTANYL CITR 250 MCG/5 ML ONE (15:18)
[2019-07-21] MEDS ORDERED: LIDOCAINE 2% MPF 5 ML VIAL ONE (15:18)
[2019-07-21] MEDS ORDERED: dexAMETHasone 10 MG/ML VIAL ONE (15:19)
[2019-07-21] MEDS ORDERED: FENTANYL CITR 100 MCG/2 ML ONE (18:22)
[2019-07-21] MEDS ORDERED: GLYCOPYRROLATE 0.2 MG/ML SYR ONE (18:23)
[2019-07-21] MEDS ORDERED: ONDANSETRON 4 MG/2 ML VIAL ONE (18:23)
[2019-07-21] MEDS ORDERED: dexAMETHasone 4 MG/ML VIAL ONE (18:24)
[2019-07-21] MEDS ORDERED: NEOSTIGMINE 1 MG/ML -5 ML ONE (18:24)
[2019-07-21] MEDS ORDERED: KETOROLAC 30 MG/ML INJ ONE (18:24)
[2019-07-21] MEDS ORDERED: LIDOCAINE 1% MPF 5 ML VIAL ONE (18:24)
[2019-07-21] MEDS ORDERED: MORPHINE 10 MG/ML VIAL ONE (18:25)
[2019-07-21] MEDS ORDERED: CEFAZOLIN/SWI 1gm 1 GM/10 ML SYR ONE (18:58)
[2019-07-21] MEDS ORDERED: CEFAZOLIN SODIUM 1 GM/VIAL ONE ×2 (18:59→22:58)
[2019-07-21] MEDS ORDERED: Ringers Lactate 1,000 ML IV ONE ×2 (19:16→21:07)
--- NOTE | 2019-07-21 19:28 | EKG ---
Test Date: 2019-07-20 Test Time: 17:58:34 Internal Sales: KIM MEASUREMENT RESULTS: Intervals: Rate: 99 IL: 166 QRSD: 90 QT: 530 QTc: 680 [place]: P: 71 IL: 166 QRS: 96 T: 55 INTERPRETIVE STATEMENTS: Normal sinus rhythm Rightward axis Nonspecific ST and T wave abnormality Prolonged QT Abnormal ECG Compared to ECG 08/05/2010 08:48:34 Right-axis deviation now present ST (T wave) deviation now present Electronically Signed On 07-21-19 19:24:15 CDT by Byron Tam
[2019-07-21] MEDS: ENSURE HIGH PROTEIN 237 ML CAN PO SCH (21:00)
--- NOTE | 2019-07-21 22:09 | P.BOP ---
Preoperative diagnosis: right femoral neck fracture (displaced) Postoperative diagnosis: same Primary procedure: Bipolar hemiarthoplasty right hip Estimated blood loss: 150 ccs Anesthesia: General Complications: None Transferred to: Recovery Room Condition: Good
[2019-07-21] MEDS: HYDROMORPHONE HCL 1 MG/ML INJ ONE ×2 (22:37→22:43)
[2019-07-22] MEDS: CEFAZOLIN/SWI 1gm 1 GM/10 ML SYR IV SCH ×3 (01:00→18:10)
[2019-07-22] MEDS ORDERED: NA CHLORIDE 0.9% 100 ML ONE (01:47)
--- NOTE | 2019-07-22 01:55 | OP ---
Date of Procedure: 07/21/2019 Surgeon: Monty Fernandez MD Preoperative Diagnosis: Right displaced femoral neck fracture, which was late to presentation. Postoperative Diagnosis: Right displaced femoral neck fracture, which was late to presentation. Procedure: Right hip bipolar hemiarthroplasty using the Biomet fracture stem. Estimated Blood Loss: 150 cc. There were no complications. The head and neck will be sent to pathology. Indications For Operation: The patient is a 54-year-old male who unfortunately sustained a stroke an d now has expressive aphasia and has limited mobility. Unfortunately, he fell. [facility] and [facility]. He then made an appointment to see me in my [facility]. I reviewed his x-rays prior to his appointment and it was obvious that he had a femoral neck fracture. He was therefore directed to go to the Emergency Department of [facility]. When he ar rived, he was seen by the Emergency Department and x-rays were again taken, which demonstrated a disp laced femoral neck fracture. I saw him in consultation yesterday and risks, benefits, and alternativ es been discussed with both he and his family members. They state they understand things as presente d. They were given the options of total hip arthroplasty or open reduction and internal fixation. H owever, at this point, I believe open reduction and internal fixation is more or less, not really a v iable possibility because of the delayed presentation. However, we did discuss quite a bit about a t otal hip arthroplasty. They state they understand things presented at this time opt for bipolar kiley arthroplasty. Procedure In Detail: The patient was taken to operating room and placed in supine position. General anesthesia was obtained by staff. Following this, he was then rolled onto the operative bed. He wa s then rolled left side down with an axillary roll. He is in appropriate position using hip position ers. Position being checked by Anesthesia. Following this, his right lower extremity was then prepp ed and draped in usual sterile fashion for arthroplasty. We should note that he does have 2 small ab rasions. However, these are not directly in line with the incision and in a protected. Following th is, a standard posterior lateral incision was taken down carefully through skin and soft tissues. Th ere was quite a bit of adipose tissue, however, the correct plane was followed. This allows for visu alization of the fascia. A small stab wound was made in the fascia. The gluteal tendon was palpated to ensure that the fascial incision made in the correct position. This was followed gently superior ly until near the tip of the greater trochanter where the gluteus tyrell muscle was encountered. Th is was followed by splitting using finger pressure. The sciatic nerve was then palpated and protecte d. There was found to be quite a bit of redundant and quite tenacious bursa. This was gently excise d with care being taken to not disturb the sciatic nerve. This was followed by takedown of the exter nal rotators and capsule with care being taken to protect the sciatic nerve again. These were then t agged for later repair. The head itself was quite difficult to remove as it had been impacted upon a spike of the neck and the patient does have significant hip stiffness, probably from pre-existing CV A which affects of the right side. A cut was made, which is slightly lower than normal to allow for removal of the shards of the neck and offer better visualization of the head. The head was then arianna cherise with some difficulty, however the sized using ring gauges to a size 54. After this, any soft tis susana or material within the acetabulum was removed. Attention was then turned back to the femur. hand iii cutter was used for lateralization. This was followed by cylindrical reaming to a size 14 and then followed by broaching, size 13 broach went down fairly easily. However, the 14 could not really be p laced without excessive pressure. Therefore, decision was made to cement in an 11. The canal was th en copiously irrigated with the femoral tip with the jet lavage. It was done until the water was dorothy ar. The bone plug was placed to appropriate depth. This further jet lavage until again runs clear. Third generation cementation technique was then used to place the size 11 Biomet fracture stem. It was then held in place while the cement dried. This was followed by trialing with a standard ball. This goes in fairly easily. It appears to be stable to flexion to 90 degrees and full adduction and internal rotation to about 20 degrees. It was felt that given the patient's low mobility and probabl e risk for dislocation, that we should trial +6. The +6 was able to be placed. It does appear to be a little bit tight in extension. However, he can come to full extension. There was no shuck. Ethani lgory was made to proceed with this, although it may slightly lengthen him most likely to not gives pr oblems with instability. Basically, this is our plan for maximum stability. Following this, the fin al ball was then impacted in place, it was then relocated. It was found to be stable to full flexion , full adduction and internal rotation to at least 35 degrees. It was checked to make sure there was no intervening soft tissue. The wound was copiously irrigated and the external rotators and capsule were then repaired back to the greater trochanter via bone tunnels. This was followed by irrigation and closure of the fascia in a watertight fashion using heavy Vicryl sutures, followed by irrigation , followed by closure of the skin using 2-0 Vicryl followed by antwon. The patient was then placed in Aquacel dressing, awakened, and taken to recovery room in good condition. No complications. /DARCY Voice ID: [id number] Report ID: [id number]
[2019-07-22] MEDS: HYDROMORPHONE HCL 1 MG/ML INJ IV PRN ×2 (03:17→20:46)
[2019-07-22 06:11] LABS: BUN Blood Urea Nitrogen 25 mg/dL (7-18); Bicarbonate 24 mmol/L (21-32); Glucose Level 138 mg/dL (74-106); Magnesium 2.4 mg/dL (1.8-2.4); Potassium 4.7 mmol/L (3.5-5.1); Sodium Level 143 mmol/L (136-145)
[2019-07-22 06:17] LABS: Absolute Lymphocytes (CBC) 0.8 K/uL (0.7-4.9); Basophils % 0.2 % (0-1.3); Hematocrit 30.5 % (39.6-49.0); Lymphocytes % 12.3 % (15.3-44.8); MPV 8.5 fL (7.6-11.3); RBC Red Blood Cell Count 3.28 M/uL (4.33-5.43)
[2019-07-22] MEDS: ENOXAPARIN 40 MG/0.4 ML SQ SCH (08:35)
[2019-07-22] MEDS: HYDROCODONE/APAP 7.5/325 MG TAB PO PRN ×3 (08:36→20:04)
[2019-07-22] MEDS: ENSURE HIGH PROTEIN 237 ML CAN PO SCH ×2 (09:00→20:07)
--- NOTE | 2019-07-22 17:37 | P.PN ---
Subjective Date of Service: 07/22/19 Primary Care Provider: JUDE Chief Complaint: Right femur fracture Subjective: Improving, Doing well Physical Examination - Vital Signs Temperature: 97.6 F Blood Pressure: 117/60 Pulse: 107 Respirations: 20 Pulse Ox (%): 97 - Physical Exam General: Alert, Cooperative HEENT: Atraumatic Neck: Supple Respiratory: Clear to auscultation bilaterally, Normal air movement Cardiovascular: Normal pulses, Regular rate/rhythm Neurological: Other (Right-sided residual weakness from prior CVA postop changes to the hip) - Studies Medications List Reviewed: Yes Assessment & Plan Discharge Plan: Home (Home with home health and outpatient physical therapy) Plan to discharge in: 24 Hours Physician Review Additional Text: Impression: Fall leading to right displaced femoral neck fracture which was late presentation status post right hip bipolar hemiarthroplasty History CVA with right-sided residual weakness Hypertension Chronic diastolic CHF : Right displaced femoral neck fracture, which was late to presentation. Procedure: Right hip bipolar hemiarthroplasty using the Biomet fracture stem Plan: Fall leading to right displaced femoral neck fracture which was late presentation status post right hip bipolar hemiarthroplasty : Patient will work with physical therapy today. Continue DVT prophylaxis. Spoke with adoption social worker about options of postoperative care. This includes inpatient rehab versus skilled placement versus other. Family prefers outpatient physical therapy. Will continue to monitor closely. Anticipate discharge with home health and outpatient physical therapy in the next 1-2 days. History CVA with right-sided residual weakness: Continue home medication. Patient apparently takes Plavix. Will hold medication in preparation for surgery. Hypertension: Continue home medication Chronic diastolic CHF: Continue home medication Time Spent Managing Pts Care (In Minutes): 55
[2019-07-22] MEDS: DOCUSATE NA 100 MG CAP PO SCH (20:04)
[2019-07-22] MEDS: ATORVASTATIN 10 MG TAB PO SCH (20:06)
[2019-07-22] MEDS: levETIRAcetam 500 MG TAB PO SCH (20:06)
[2019-07-22] MEDS ORDERED: HOME MED 1 EA UNK (Pravastatin Sodium [Pravastatin Sodium] 20 MG) PO SCH (21:00)
[2019-07-22] MEDS: NA CHLORIDE 0.9% 1,000 ML IV SCH ×2 (21:42→21:43)
[2019-07-22] MEDS ORDERED: LORazepam 2 MG/ML VIAL IV ONE (21:59)
[2019-07-22] MEDS ORDERED: HYDROMORPHONE HCL 0.5 MG/0.5 ML INJ IV ONE ×2 (22:00→23:00)
[2019-07-23] MEDS: CEFAZOLIN/SWI 1gm 1 GM/10 ML SYR IV SCH (01:00)
[2019-07-23] MEDS: HYDROMORPHONE HCL 1 MG/ML INJ IV PRN ×3 (04:25→19:55)
[2019-07-23] MEDS ORDERED: NA CHLORIDE 0.9% 500 ML ONE (05:24)
[2019-07-23 05:32] LABS: Absolute Lymphocytes (CBC) 0.7 K/uL (0.7-4.9); Basophils % 0.6 % (0-1.3); Hematocrit 26.7 % (39.6-49.0); Lymphocytes % 13.4 % (15.3-44.8); MPV 7.8 fL (7.6-11.3); RBC Red Blood Cell Count 2.89 M/uL (4.33-5.43)
[2019-07-23 05:47] LABS: BUN Blood Urea Nitrogen 22 mg/dL (7-18); Bicarbonate 26 mmol/L (21-32); Glucose Level 107 mg/dL (74-106); Magnesium 2.2 mg/dL (1.8-2.4); Potassium 3.8 mmol/L (3.5-5.1); Sodium Level 141 mmol/L (136-145)
[2019-07-23] MEDS ORDERED: POTASSIUM CL SA 10 MEQ TAB PO ONE (06:07)
[2019-07-23] MEDS: NA CHLORIDE 0.9% 1,000 ML IV SCH (06:36)
[2019-07-23] MEDS: FENTANYL CITR 100 MCG/2 ML IV PRN ×2 (07:05→15:33)
--- NOTE | 2019-07-23 07:46 | RAD REPORT ---
EXAM DESCRIPTION: RAD - Femur Right - 07/20/2019 4:09 pm CLINICAL HISTORY: Fall Fall, right-sided hip pain COMPARISON: None FINDINGS: AP pelvis and right femur- multiple projections are submitted Subcapital fracture is seen of the proximal right femur with varus angulation. No dislocation or AVN seen.
[2019-07-23] MEDS: ENOXAPARIN 40 MG/0.4 ML SQ SCH (08:53)
[2019-07-23] MEDS: MULTIVIT W/ MINERAL TAB PO SCH (08:53)
[2019-07-23] MEDS: CLOPIDOGREL 75 MG TABLET PO SCH (08:53)
[2019-07-23] MEDS: levETIRAcetam 500 MG TAB PO SCH ×2 (08:53→21:28)
[2019-07-23] MEDS: ENSURE HIGH PROTEIN 237 ML CAN PO SCH ×2 (08:54→21:00)
--- NOTE | 2019-07-23 13:26 | P.PN ---
Subjective Date of Service: 07/23/19 Primary Care Provider: TXMANDY Chief Complaint: Right femur fracture Review of Systems General: Unremarkable Eyes: Unremarkable ENT: Unremarkable Respiratory: Unremarkable Cardiovascular: Unremarkable Gastrointestinal: Unremarkable Genitourinary: Unremarkable Musculoskeletal: As per HPI Integumentary: Unremarkable Neurological: As per HPI Lymphatics: Unremarkable Physical Examination - Vital Signs Temperature: 98.7 F Blood Pressure: 120/42 Pulse: 107 Respirations: 18 Pulse Ox (%): 99 - Physical Exam General: Alert, In no apparent distress, Oriented x3 HEENT: Atraumatic, Normocephalic Neck: Supple Respiratory: Normal air movement Cardiovascular: Normal S1 S2 Capillary refill: <2 Seconds Gastrointestinal: Normal bowel sounds Musculoskeletal: No erythema, No warmth Integumentary: No erythema, No warmth Neurological: Normal speech - Studies Medications List Reviewed: Yes Assessment & Plan Discharge Plan: Other (Inpatient rehab) Plan to discharge in: 24 Hours Physician Review Additional Text: Impression: Fall leading to right displaced femoral neck fracture which was late presentation status post right hip bipolar hemiarthroplasty History CVA with right-sided residual weakness Hypertension Chronic diastolic CHF Plan: Fall leading to right displaced femoral neck fracture which was late presentation status post right hip bipolar hemiarthroplasty : Patient will work with physical therapy today. Continue DVT prophylaxis. Spoke with director of social work about options of postoperative care. At this time based on input from family, physical therapy, social workers is been determined that patient may benefit most from inpatient rehab prior to discharge. Will begin to attempt placement for inpatient rehab. Anticipate discharge to inpatient rehab next 24- 48 hr. The patient has been working well with physical therapy. History CVA with right-sided residual weakness: Continue home medication. Hypertension: Continue home medication Chronic diastolic CHF: Continue home medication Critical Care: No Time Spent Managing Pts Care (In Minutes): 55
[2019-07-23] MEDS: DOCUSATE NA 100 MG CAP PO SCH (21:28)
[2019-07-23] MEDS: ATORVASTATIN 10 MG TAB PO SCH (21:29)
[2019-07-23] MEDS: HYDROCODONE/APAP 7.5/325 MG TAB PO PRN (21:30)
[2019-07-24] MEDS: NA CHLORIDE 0.9% 1,000 ML IV SCH ×2 (02:26→17:28)
[2019-07-24] MEDS: FENTANYL CITR 100 MCG/2 ML IV PRN (04:56)
[2019-07-24 06:21] LABS: Absolute Lymphocytes (CBC) 0.7 K/uL (0.7-4.9); Basophils % 0.5 % (0-1.3); Hematocrit 23.1 % (39.6-49.0); Lymphocytes % 15.4 % (15.3-44.8); MPV 7.9 fL (7.6-11.3); RBC Red Blood Cell Count 2.49 M/uL (4.33-5.43)
[2019-07-24 06:44] LABS: BUN Blood Urea Nitrogen 15 mg/dL (7-18); Bicarbonate 25 mmol/L (21-32); Glucose Level 100 mg/dL (74-106); Potassium 3.5 mmol/L (3.5-5.1); Sodium Level 142 mmol/L (136-145)
[2019-07-24] MEDS: ENOXAPARIN 40 MG/0.4 ML SQ SCH (08:19)
[2019-07-24] MEDS: CLOPIDOGREL 75 MG TABLET PO SCH (08:19)
[2019-07-24] MEDS: MULTIVIT W/ MINERAL TAB PO SCH (08:20)
[2019-07-24] MEDS: levETIRAcetam 500 MG TAB PO SCH ×2 (08:20→20:25)
[2019-07-24] MEDS: ENSURE HIGH PROTEIN 237 ML CAN PO SCH ×2 (08:21→19:49)
[2019-07-24] MEDS ORDERED: POTASSIUM CL SA 10 MEQ TAB PO ONE (09:00)
[2019-07-24] MEDS: HYDROMORPHONE HCL 1 MG/ML INJ IV PRN (11:13)
--- NOTE | 2019-07-24 13:35 | P.PN ---
Subjective Date of Service: 07/24/19 Primary Care Provider: JUDE Chief Complaint: Right femur fracture Subjective: No new changes, Ambulating, Improving, Working w/ PT Review of Systems General: Unremarkable Eyes: Unremarkable ENT: Unremarkable Respiratory: Unremarkable Cardiovascular: Unremarkable Gastrointestinal: Unremarkable Genitourinary: Unremarkable Musculoskeletal: As per HPI Integumentary: Unremarkable Neurological: As per HPI Physical Examination - Vital Signs Temperature: 97.6 F Blood Pressure: 131/73 Pulse: 104 Respirations: 16 Pulse Ox (%): 100 - Physical Exam General: Alert, In no apparent distress, Oriented x3 HEENT: Atraumatic, Normocephalic Neck: Supple Respiratory: Clear to auscultation bilaterally, Normal air movement Cardiovascular: No edema Capillary refill: <2 Seconds Gastrointestinal: Soft and benign Musculoskeletal: No erythema, No warmth Integumentary: No erythema, No warmth Neurological: Normal speech - Studies Medications List Reviewed: Yes Assessment & Plan Discharge Plan: Other (Inpatient rehab for home with home health and physical therapy) Plan to discharge in: 24 Hours Physician Review Additional Text: Impression: Fall leading to right displaced femoral neck fracture which was late presentation status post right hip bipolar hemiarthroplasty History CVA with right-sided residual weakness Hypertension Chronic diastolic CHF Plan: Fall leading to right displaced femoral neck fracture which was late presentation status post right hip bipolar hemiarthroplasty : Patient will work with physical therapy today. Continue DVT prophylaxis. Spoke with social science manager about options of postoperative care. At this time based on input from family, physical therapy, social workers is been determined that patient may benefit most from inpatient rehab prior to discharge. Will begin to attempt placement for inpatient rehab. Anticipate discharge to inpatient rehab next 24- 48 hr. The patient has been working well with physical therapy and is now ambulating with assistance. If patient cannot be approved for inpatient rehab. Family wishes to have patient go home with home health and physical therapy. History CVA with right-sided residual weakness: Continue home medication. Hypertension: Continue home medication Chronic diastolic CHF: Continue home medication Critical Care: No Time Spent Managing Pts Care (In Minutes): 55
[2019-07-24] MEDS: HYDROCODONE/APAP 7.5/325 MG TAB PO PRN (20:24)
[2019-07-24] MEDS: ATORVASTATIN 10 MG TAB PO SCH (20:24)
[2019-07-24] MEDS: DOCUSATE NA 100 MG CAP PO SCH (20:24)
[2019-07-25] MEDS: NA CHLORIDE 0.9% 1,000 ML IV SCH (05:51)
[2019-07-25 06:52] LABS: BUN Blood Urea Nitrogen 11 mg/dL (7-18); Bicarbonate 24 mmol/L (21-32); Glucose Level 98 mg/dL (74-106); Potassium 3.7 mmol/L (3.5-5.1); Sodium Level 142 mmol/L (136-145)
[2019-07-25] MEDS: ENSURE HIGH PROTEIN 237 ML CAN PO SCH ×2 (09:00→20:54)
[2019-07-25] MEDS ORDERED: POTASSIUM CL SA 10 MEQ TAB PO ONE (09:00)
[2019-07-25] MEDS: MULTIVIT W/ MINERAL TAB PO SCH (09:43)
[2019-07-25] MEDS: levETIRAcetam 500 MG TAB PO SCH ×2 (09:44→20:53)
[2019-07-25] MEDS: ENOXAPARIN 40 MG/0.4 ML SQ SCH (09:45)
[2019-07-25] MEDS: CLOPIDOGREL 75 MG TABLET PO SCH (09:45)
[2019-07-25] MEDS: HYDROCODONE/APAP 7.5/325 MG TAB PO PRN (09:47)
--- NOTE | 2019-07-25 13:25 | P.PN ---
Subjective Date of Service: 07/25/19 Primary Care Provider: JUDE Chief Complaint: Right femur fracture Subjective: Improving, Doing well (Patient ambulating well with physical therapy.) Physical Examination - Vital Signs Temperature: 97.8 F Blood Pressure: 131/64 Pulse: 95 Respirations: 18 Pulse Ox (%): 96 - Physical Exam General: Alert, In no apparent distress, Cooperative HEENT: Atraumatic Neck: Supple Respiratory: Clear to auscultation bilaterally, Normal air movement Cardiovascular: Normal pulses, Regular rate/rhythm Gastrointestinal: Normal bowel sounds, No masses, No rebound, No guarding Neurological: Normal tone, Normal affect - Studies Medications List Reviewed: Yes Assessment & Plan Discharge Plan: Other (Inpatient rehab) Plan to discharge in: 48 Hours Physician Review Additional Text: Impression: Fall leading to right displaced femoral neck fracture which was late presentation status post right hip bipolar hemiarthroplasty Acute blood-loss anemia post surgery History CVA with right-sided residual weakness Hypertension Chronic diastolic CHF Elevated liver function likely fatty liver Plan: Fall leading to right displaced femoral neck fracture which was late presentation status post right hip bipolar hemiarthroplasty : Patient continues to do well with physical therapy. Will adjust pain medication. Continue DVT prophylaxis. Awaiting approval for inpatient rehab. Readdressed advance care planning and advanced directives. Patient is full code. Family anticipates approval to inpatient rehab. If declined by inpatient rehab family desires to take the patient home with home health and possible outpatient physical therapy. Anticipate approval to inpatient rehab soon. Acute blood-loss anemia post surgery: Expected blood loss after surgery. Will monitor this closely. Will check iron and B12 studies. History CVA with right-sided residual weakness: Overall stable. Continue home medication. Hypertension: Overall stable. Continue home medication Chronic diastolic CHF: Overall stable. Continue home medication Elevated liver function likely fatty liver: Liver function tests were elevated upon admission. Will recheck tomorrow. Will send for hepatitis panel. Suspect underlying fatty liver. Time Spent Managing Pts Care (In Minutes): 55
[2019-07-25] MEDS: DOCUSATE NA 100 MG CAP PO SCH (20:53)
[2019-07-25] MEDS: ATORVASTATIN 10 MG TAB PO SCH (20:53)
[2019-07-26 06:14] LABS: Absolute Lymphocytes (CBC) 0.7 K/uL (0.7-4.9); Basophils % 0.7 % (0-1.3); Hematocrit 25.4 % (39.6-49.0); Lymphocytes % 15.2 % (15.3-44.8); MPV 7.9 fL (7.6-11.3); RBC Red Blood Cell Count 2.72 M/uL (4.33-5.43)
[2019-07-26 07:15] LABS: ALT/SGPT 44 U/L (12-78); AST/SGOT 21 U/L (15-37); Albumin 2.4 g/dL (3.4-5.0); Alkaline Phosphatase 86 U/L (45-117); BUN Blood Urea Nitrogen 11 mg/dL (7-18); Bicarbonate 25 mmol/L (21-32); Bilirubin Total 0.4 mg/dL (0.2-1.0); Glucose Level 113 mg/dL (74-106); Magnesium 2.2 mg/dL (1.8-2.4); Potassium 3.6 mmol/L (3.5-5.1); Protein, Total 5.7 g/dL (6.4-8.2); Sodium Level 142 mmol/L (136-145); Transferrin 107 mg/dL (200-360)
[2019-07-26] MEDS: MULTIVIT W/ MINERAL TAB PO SCH (08:49)
[2019-07-26] MEDS: levETIRAcetam 500 MG TAB PO SCH ×2 (08:49→20:56)
[2019-07-26] MEDS: CLOPIDOGREL 75 MG TABLET PO SCH (08:49)
[2019-07-26] MEDS: ENSURE HIGH PROTEIN 237 ML CAN PO SCH ×2 (08:50→19:58)
[2019-07-26] MEDS: ENOXAPARIN 40 MG/0.4 ML SQ SCH (08:50)
[2019-07-26] MEDS: FENTANYL CITR 100 MCG/2 ML IV PRN (10:42)
[2019-07-26] MEDS ORDERED: POTASSIUM CL SA 10 MEQ TAB PO ONE (11:00)
[2019-07-26] MEDS: HYDROCODONE/APAP 7.5/325 MG TAB PO PRN (11:32)
[2019-07-26] MEDS ORDERED: ALPRAZOLAM 0.25 MG TABLET PO PRN (11:59)
--- NOTE | 2019-07-26 12:02 | P.PN ---
Subjective Date of Service: 07/26/19 Primary Care Provider: JUDE Chief Complaint: Right femur fracture Subjective: Other (Reports improvement.) Physical Examination - Vital Signs Temperature: 97.4 F Blood Pressure: 126/59 Pulse: 100 Respirations: 20 Pulse Ox (%): 100 - Physical Exam General: Alert, Cooperative HEENT: Atraumatic Neck: Supple Respiratory: Clear to auscultation bilaterally, Normal air movement Cardiovascular: Normal pulses, Regular rate/rhythm Gastrointestinal: Normal bowel sounds, Soft and benign, Non-distended Musculoskeletal: No tenderness, No warmth Integumentary: No tenderness/swelling, No erythema, No warmth, No cyanosis Neurological: Normal speech, Normal strength at 5/5 x4 extr, Normal tone - Studies Medications List Reviewed: Yes Assessment & Plan Discharge Plan: Other (Inpatient rehab) Plan to discharge in: 24 Hours Physician Review Additional Text: Impression: Fall leading to right displaced femoral neck fracture which was late presentation status post right hip bipolar hemiarthroplasty Acute blood-loss anemia post surgery History CVA with right-sided residual weakness Hypertension Chronic diastolic CHF Elevated liver function likely fatty liver Plan: Fall leading to right displaced femoral neck fracture which was late presen tation status post right hip bipolar hemiarthroplasty : Patient continues to do well with physical therapy. Will continue to adjust pain medication. Patient on DVT prophylaxis. Awaiting approval for inpatient rehab. Anticipate approval likely tomorrow. If declined patient prefers to go home with home health and physical therapy. I will turn the service over to the hospitalist team tomorrow. I will go over the plan of care with him. Acute blood-loss anemia post surgery: Expected blood loss after surgery. Will monitor this closely. Will start multi vitamin with iron. History CVA with right-sided residual weakness: Overall stable. Continue home medication. Hypertension: Overall stable. Continue home medication Chronic diastolic CHF: Overall stable. Continue home medication Elevated liver function likely fatty liver: Liver function tests now within normal range. Will send for hepatitis panel. Suspect underlying fatty liver. Time Spent Managing Pts Care (In Minutes): 55
[2019-07-26] MEDS ORDERED: FENTANYL CITR 100 MCG/2 ML IV ONE (12:07)
[2019-07-26] MEDS: ATORVASTATIN 10 MG TAB PO SCH (20:56)
[2019-07-26] MEDS: DOCUSATE NA 100 MG CAP PO SCH (20:56)
[2019-07-27 05:39] LABS: BUN Blood Urea Nitrogen 11 mg/dL (7-18); Bicarbonate 24 mmol/L (21-32); Glucose Level 124 mg/dL (74-106); Potassium 3.7 mmol/L (3.5-5.1); Sodium Level 143 mmol/L (136-145)
[2019-07-27] MEDS: levETIRAcetam 500 MG TAB PO SCH ×2 (08:44→20:22)
[2019-07-27] MEDS: MULTIVIT W/ MINERAL TAB PO SCH (08:44)
[2019-07-27] MEDS: CLOPIDOGREL 75 MG TABLET PO SCH (08:44)
[2019-07-27] MEDS: ENOXAPARIN 40 MG/0.4 ML SQ SCH (08:45)
[2019-07-27] MEDS: ENSURE HIGH PROTEIN 237 ML CAN PO SCH ×2 (08:45→20:22)
[2019-07-27] MEDS ORDERED: POTASSIUM CL SA 10 MEQ TAB PO ONE (09:00)
[2019-07-27] MEDS: HYDROCODONE/APAP 7.5/325 MG TAB PO PRN (10:12)
--- NOTE | 2019-07-27 12:46 | P.PN ---
Subjective Date of Service: 07/27/19 Primary Care Provider: JUDE Chief Complaint: Right femur fracture Subjective: No new changes (awaiting SNF approval - pt feels fine - state abale to move to chair now), No C/O voiced Physical Examination - Vital Signs Temperature: 97.5 F Blood Pressure: 123/68 Pulse: 83 Respirations: 18 Pulse Ox (%): 100 - Physical Exam General: Alert, In no apparent distress, Oriented x3 HEENT: Atraumatic, Normocephalic, PERRLA Neck: 2+ carotid pulse no bruit, JVD not distended Respiratory: Clear to auscultation bilaterally, Normal air movement Cardiovascular: Normal pulses Gastrointestinal: Normal bowel sounds, Soft and benign, Non-distended Neurological: Normal speech, Normal strength at 5/5 x4 extr, Normal tone External genitalia: No edema, No lesions - Studies Medications List Reviewed: Yes Assessment And Plan Physician Review: Patient Assessed, Agree with Above Assessment and Plan Physician Review Additional Text: Impression: Fall leading to right displaced femoral neck fracture which was late presentation status post right hip bipolar hemiarthroplasty Acute blood-loss anemia post surgery History CVA with right-sided residual weakness Hypertension Chronic diastolic CHF Elevated liver function likely fatty liver Plan: Fall leading to right displaced femoral neck fracture which was late presentation status post right hip bipolar hemiarthroplasty : -c/w PT - follow insurance approval -call placed to [facility] for peer to peer review today -c/w pain regime -if declined by insurance , can dc home with home PT then Acute blood-loss anemia post surgery: follow trend , stable , c/w multi vitamin with iron. History CVA with right-sided residual weakness: Overall stable. Continue home medication. Hypertension: Overall stable. Continue home medication Chronic diastolic CHF: Overall stable. Continue home medication Elevated liver function likely fatty liver: Liver function tests now within normal range. Will send for hepatitis panel. Suspect underlying fatty liver.
[2019-07-27] MEDS: FERROUS SULFATE 325 MG TAB PO SCH (20:21)
[2019-07-27] MEDS: ATORVASTATIN 10 MG TAB PO SCH (20:21)
[2019-07-27] MEDS: DOCUSATE NA 100 MG CAP PO SCH (20:22)
[2019-07-28] MEDS: HYDROCODONE/APAP 7.5/325 MG TAB PO PRN (01:12)
[2019-07-28 04:52] LABS: ALT/SGPT 35 U/L (12-78); AST/SGOT 17 U/L (15-37); Albumin 2.3 g/dL (3.4-5.0); Alkaline Phosphatase 85 U/L (45-117); BUN Blood Urea Nitrogen 12 mg/dL (7-18); Bicarbonate 26 mmol/L (21-32); Bilirubin Total 0.4 mg/dL (0.2-1.0); Glucose Level 103 mg/dL (74-106); Potassium 4.1 mmol/L (3.5-5.1); Protein, Total 5.5 g/dL (6.4-8.2); Sodium Level 143 mmol/L (136-145)
[2019-07-28 04:55] LABS: Absolute Lymphocytes (CBC) 0.8 K/uL (0.7-4.9); Basophils % 0.7 % (0-1.3); Hematocrit 23.9 % (39.6-49.0); Lymphocytes % 18.2 % (15.3-44.8); MPV 7.7 fL (7.6-11.3); RBC Red Blood Cell Count 2.55 M/uL (4.33-5.43)
[2019-07-28] MEDS: ENSURE HIGH PROTEIN 237 ML CAN PO SCH (09:00)
[2019-07-28] MEDS: ENOXAPARIN 40 MG/0.4 ML SQ SCH (09:42)
[2019-07-28] MEDS: levETIRAcetam 500 MG TAB PO SCH (09:42)
[2019-07-28] MEDS: CLOPIDOGREL 75 MG TABLET PO SCH (09:42)
[2019-07-28] MEDS: MULTIVIT W/ MINERAL TAB PO SCH (09:42)
[2019-07-28] MEDS: FERROUS SULFATE 325 MG TAB PO SCH (09:42)
[2019-07-28 09:51] VITALS: O2SAT 100
[2019-07-28 12:24] VITALS: BP 128/67; TEMP 97.6
--- NOTE | 2019-07-29 00:38 | DS ---
Date of Discharge: 07/28/2019 Consultants: Dr. Fernandez with Orthopedics. Procedures: On 07/21/2019, right displaced femoral neck fracture, right hip bipolar hemiarthroplasty . Admitting Diagnoses: 1.Status post fall. 2.Right proximal femoral fracture, closed initial encounter. 3.History of cerebrovascular accident with right-sided residual weakness. 4.Essential hypertension. 5.Chronic diastolic congestive heart failure. 6.Obesity, BMI 30. Discharge Diagnoses: 1.Status post fall. 2.Right displaced femoral neck fracture, late presentation initial encounter status post open reduct ion and internal fixation. 3.Acute blood loss anemia, postsurgical. 4.History of cerebrovascular accident with right-sided weakness, on anticoagulation. 5.Essential hypertension. 6.Chronic diastolic congestive heart failure, stable. 7.Elevated liver function likely fatty liver disease. Hospital Course: Patient is a 54-year-old male with history of CVA with right-sided weakness, hypert ension, chronic congestive heart failure, diastolic dysfunction, came in from the orthopedic office a fter a right femoral neck fracture. Patient apparently had been seen at [facility] ER after a fal l, at that time, he was told that he did not have a fracture according to the ER and they reported th at he did have a fracture, but family wanted specific physician who was not available. Patient left to be seen as an outpatient and made an appointment with the orthopedic surgeon then he was transferr ed to the ER instead of going to the office due to hip fracture. Patient was taken to the OR for NELSON F and correction of his fracture. He did well postoperatively, worked well with physical therapy. H e did develop some postoperative anemia. He was screened for COVID, which was negative. Pathology s rashaad showed no malignancy consistent with fracture. Patient was initially referred to rehab, but was denied by insurance. Patient's mother who is the patient's caregiver who takes care of the patie nt as part of home health. Patient was then set up for home health. It was also done by Dr. Jolene Álvarez. Patient was then discharged home in a stable condition with home health care. Patient d id not want a retirement facility and they were denied rehab. They understand the risks of porter g home versus retirement facility, which would expedite healing process. Medications: As per medication reconciliation list. Patient will be on Eliquis 2.5 mg b.i.d. for th e next 30 days for DVT prophylaxis status post hip replacement. He needs to have his hemoglobin repeated in the next 2 days and to monitor need for transfusion and t o watch for signs of bleeding as he is also on anti-platelet therapy for his stroke. Followup: Patient to follow up with primary care physician in 2-3 days. Follow up with Orthopedic, Dr. Fernandez in 2 weeks. Return to ER for worsening condition. Diet: Heart healthy. Activity: Fall precautions. No driving or operating heavy machinery while on narcotics. Patient was given tramadol for pain. [place] prescription monitoring program was checked. His score w as 150. Patient had minimal risk for overdose. Physical Examination: General: Awake, alert, oriented x3, obese male, not in any acute distress. CV: S1, S2. Respiratory: Moving air well bilaterally. Abdomen: Soft, nontender, nondistended. Positive bowel sounds. Extremities: No clubbing, cyanosis. Patient does have edema in the right lower extremity. Neuro: Right-sided weakness Musculoskeletal: Incision site clean, dry, intact on the right hip. Total time spent discharging patient was 35 minutes. SA/MODL Voice ID: [id number] Report ID: [id number]
== END 2019-07-28 12:19 | disposition home health service (06) | DRG 470 ==
LOC: ER 14:22 → ERHOLD 17:40 → 2ND 20:57
PROVIDERS: ADMIT Family Medicine; ATTEND Family Medicine
PROC: 0SRR0JZ Replacement of Right Hip Joint, Femoral Surface with Synthetic Substitute, Open Approach (ICD-10-PCS; principal; 2019-07-21 17:00)
DX: S72.001A Fracture of unspecified part of neck of right femur, initial encounter for closed fracture (principal); I50.32 Chronic diastolic (congestive) heart failure; I69.351 Hemiplegia and hemiparesis following cerebral infarction affecting right dominant side; D62 Acute posthemorrhagic anemia; I11.0 Hypertensive heart disease with heart failure; Z79.02 Long term (current) use of antithrombotics/antiplatelets; Z79.899 Other long term (current) drug therapy; Z85.46 Personal history of malignant neoplasm of prostate; Z90.49 Acquired absence of other specified parts of digestive tract; Z20.828 Contact with and (suspected) exposure to other viral communicable diseases; W18.30XA Fall on same level, unspecified, initial encounter; K76.0 Fatty (change of) liver, not elsewhere classified; E66.9 Obesity, unspecified; Z68.30 Body mass index [BMI] 30.0-30.9, adult; Z79.01 Long term (current) use of anticoagulants
CPT/HCPCS: 36415; 71045; 72170; 80048; 80053; 80076; 82607; 82728; 83540; 83735; 84466; 85025; 85610; 85730; 88305; 88311; 93005; 96374; 96375; 97110; 97116; 97161; 97165; 97530; 97542; 99285; J0690; J1100; J1170; J1650; J2250; J2270; J2405; J2704; J2710; J3010; J7030; J7040; J7120; U0002

== ENCOUNTER 2019-10-27 10:36 | Emergency (ER) | payer OTHER ==
--- OUTSIDE RECORDS SUMMARY | 2019-10-27 11:14 | XMS REPORT | Continuity of Care Document ---
:1965 Author Organization [facility] t Address [address] [place] [address] Care Team Providers Name Role Phone Evita SYLVESTER Attending Clinician Esmer Ovalles Attending Clinician Unavailable Problems This patient has no known problems. Allergies, Adverse Reactions, Alerts This patient has no known allergies or adverse reactions. Medications This patient has no known medications. Procedures This patient has no known procedures. Encounters Start End Encounter Admission Attending Care Care Encounter Source Date/Time Date/Time Type Type Clinicians Facility Department ID 2019-10-14 2019-10-14 Telephone [place] [id number] 00:00:00 00:00:00 Juancarlos Elise [id number] [place] [id number] Professio [phone] [address] 2019-10-12 2019-10-12 Telemedici [place] [id number] 07:59:40 08:19:40 ne Visit Juancarlos Elise [id number] [place] [id number] Professio [phone] [address] 2019-10-12 2019-10-12 Patient Ovalles [facility] [id number] 00:00:00 00:00:00 Outreach Casandra Elise [id number] Jessica [id number] Professio [phone] [address] Results This patient has no known results.
--- OUTSIDE RECORDS SUMMARY | 2019-10-27 11:16 | XMS REPORT | Summary of Care ---
:1965 Author Organization [facility] Address [address] [place] [address] Care Team Providers Name Role Phone Juancarlos Jama MD Primary Care Provider Reason for Visit Reason Comments Refill Request Encounter Details Date Type Department Care Team Description 09/21/2019 Refill [facility] Endocrinology- Juancarlos Dominguez MD Refill Request [place] [address] [address] [place] [address] [place] [address] [phone] Allergies No Known Allergiesdocumented as of this encounter (statuses as of 09/28/2019) Medications Medication Sig Dispensed Refills Start Date End Date Status levETIRAcetam 1,000 Take 1,000 mg 0 Active mg TbSu by mouth 2 (two) times daily. furosemide 20 mg Take 1 tablet 30 tablet 11 07/14/2019 Active tabletIndications: by mouth Essential daily. hypertension propranolol 10 mg Take 1 tablet 180 tablet 3 07/14/2019 Active tabletIndications: by mouth 2 Essential (two) times hypertension daily. pravastatin 20 mg Take 1 tablet 90 tablet 2 07/14/2019 Active tabletIndications: by mouth at Mixed hyperlipidemia bedtime. docusate (COLACE) Take 1 capsule 90 capsule 1 07/14/2019 Active 100 mg by mouth capsuleIndications: daily. Constipation, unspecified constipation type traMADol 100 mg 24 Take 1 tablet 60 tablet 0 08/06/2019 Active hr by mouth once tabletIndications: daily as Fall, initial needed for encounter, Right Pain. wrist pain, Contusion of right wrist, initial encounter, Acute pain of right knee, Abdominal pain, unspecified abdominal location acetaminophen 650 mg Take 1 tablet 60 tablet 0 08/06/2019 Active CR by mouth every tabletIndications: 8 (eight) Fall, initial hours as encounter, Right needed for wrist pain, Pain. Contusion of right wrist, initial encounter, Acute pain of right knee, Abdominal pain, unspecified abdominal location ferrous sulfate 325 Take 1 tablet 90 tablet 0 08/27/2019 Active mg (65 mg iron) by mouth 3 tabletIndications: (three) times Other iron daily with deficiency anemia meals. Leg Brace S72.001A/Z98.890/M79.98 1 Each 0 08/27/2019 Active MiscIndications: Closed fracture of Comfort leg/foot brace (shanna fy to fit RLE). Apply daily to Right Lower Extremity neck of right femur, Custom Brand: Transcend initial encounter, S/P ORIF (open Dispense #1 as covered by patient's insurance reduction internal fixation) fracture, Swelling of right lower extremity CLOPIDOGREL 75 mg Take 1 tablet 90 tablet 0 09/28/2019 Active tabletIndications: by mouth once History of stroke, daily Hemiparesis affecting right side as late effect of cerebrovascular accident (CVA) CLOPIDOGREL 75 mg Take 1 tablet 90 tablet 0 06/17/2019 02 Discontinued tabletIndications: by mouth once 0 History of stroke, daily Hemiparesis affecting right side as late effect of cerebrovascular accident (CVA) documented as of this encounter (statuses as of 09/28/2019) Active Problems Problem Noted Date Swelling of right lower extremity 08/27/2019 Other iron deficiency anemia 08/27/2019 S/P ORIF (open reduction internal fixation) fracture 0 08/06/2019 Fall, initial encounter 07/15/2019 Right wrist pain 07/15/2019 Contusion of right wrist, initial encounter 07/15/2019 Acute pain of right knee 07/15/2019 Abdominal pain, unspecified abdominal location 020 Closed fracture of neck of right femur, initial encoun ter 07/15/2019 Pure hypertriglyceridemia 07/14/2019 Hemiparesis of right dominant side as late effect of c erebral infarction 07/14/2019 Constipation, unspecified constipation type 07/14/2019 Essential hypertension 03/20/2019 History of seizure 03/20/2019 Exercise counseling 03/20/2019 Former smoker 03/20/2019 History of stroke 12/15/2018 Hemiparesis affecting right side as late effect of cer ebrovascular 12/15/2018 accident (CVA) Bilateral impacted cerumen 12/15/2018 Obesity (BMI 30-39.9) 05/20/2018 Prostate nodule 04/17/2018 Overview: Added automatically from request for jaqueline mares [id number] documented as of this encounter (statuses as of 09/28/2019) Social History Tobacco Use Types Packs/Day Years Used Date Former Smoker Smokeless Tobacco: Never Used Alcohol Use Drinks/Week oz/Week Comments Yes Sex Assigned at Date Recorded Not on file COVID-19 Exposure Response Date Recorded In the last month, have you been in contact with No / Unsure 08/27/2019 2:38 PM CDT someone who was confirmed or suspected to have Coronavirus / COVID-19? documented as of this encounter Last Filed Vital Signs Not on filedocumented in this encounter Miscellaneous Notes Telephone Encounter - Juancarlos Jama MD - 09/28/2019 9:59 AM CDTRx sent let patient know, follow-up as scheduled. documented in this encounter Plan of Treatment Date Type Specialty Care Team Description 10/12/2019 Telemedicine Visit Family Medicine Azael Jama MD [address] [place] [address] Dr Jackson [address] [place] [address] 15 [phone] 11/18/2019 Office Visit Family Medicine Mohan Raphael MD [address] [place] [address] [phone] 11/27/2019 Office Visit Family Medicine Juancarlos Jama MD [address] [place] [address] Dr Jackson [address] [place] [address] 15 [phone] Health Maintenance Due Date Last Done Comments COLON CANCER SCREENING ANNUAL 2013 FIT/FOBT COLON CANCER SCREENING FIT DNA 2013 EVERY 3 YEARS COLON CANCER SCREENING 2013 SIGMOIDOSCOPY EVERY 5 YEARS Zoster Recombinant Vaccine 2013 (SHINGRIX) (1 of 2) INFLUENZA VACCINE (#1) 2019 DTaP,Tdap,and Td Vaccines (1 - 03/20/2020 P ostponed from 1982 Tdap) (Refused) Depression Screening 03/20/2020 03/20/2019 HEPATITIS C (HCV) SCREEN 03/20/2020 Postpon ed from 1965 (Refused) LUNG CANCER SCREEN: Recommended 03/20/2020 Postponed from 2018 for age 55-80 with 30 + pack year (Refused) history COLONOSCOPY 07/18/2028 07/18/2018 Colorectal Cancer Screening 07/18/2028 PNEUMOCOCCAL 0-64 YEARS COMBINED Aged Out No longer eligible based on SERIES patient's age to complete this topic documented as of this encounter Results Not on filedocumented in this encounter Visit Diagnoses Diagnosis History of stroke Transient ischemic attack (TIA), and cer ebral infarction without residual deficits Hemiparesis affecting right side as late effect of cerebrovascular accident (CVA) documented in this encounter Insurance Payer Benefit Plan / Subscriber ID Effective Dates Phone Addre ss Type Group HUMANA - HUMANA [id number] [facility] MANAGED MEDICARE t FFS MEDICARE documented as of this encounter
--- OUTSIDE RECORDS SUMMARY | 2019-10-27 11:16 | XMS REPORT | Summary of Care ---
:[address] [facility] Address [address] [place] [address] Care Team Providers Name Role Phone Juancarlos Jama MD Primary Care Provider Reason for Visit Reason Comments Refill Request Encounter Details Date Type Department Care Team Description 09/28/2019 Refill [facility] Pediatric and Juancarlos Quijano MD Refill Request Adult Primary Care- [address] [facility] [address] Elise Manuel [address] [place] [address] [address] [place] [address] [phone] Allergies No Known Allergiesdocumented as of this encounter (statuses as of 10/01/2019) Medications Medication Sig Dispensed Refills Start Date End Date Status levETIRAcetam 1,000 mg Take 1,000 mg by 0 Active TbSu mouth 2 (two) times daily. furosemide 20 mg Take 1 tablet by 30 tablet 11 07/14/2019 Active tabletIndications: mouth daily. Essential hypertension propranolol 10 mg Take 1 tablet by 180 tablet 3 07/14/2019 Active tabletIndications: mouth 2 (two) Essential hypertension times daily. pravastatin 20 mg Take 1 tablet by 90 tablet 2 07/14/2019 Active tabletIndications: mouth at Mixed hyperlipidemia bedtime. docusate (COLACE) 100 Take 1 capsule 90 capsule 1 07/14/2019 Active mg capsuleIndications: by mouth daily. Constipation, unspecified constipation type traMADol 100 mg 24 hr Take 1 tablet by 60 tablet 0 08/06/2019 Active tabletIndications: mouth once daily Fall, initial as needed for encounter, Right wrist Pain. pain, Contusion of right wrist, initial encounter, Acute pain of right knee, Abdominal pain, unspecified abdominal location acetaminophen 650 mg CR Take 1 tablet by 60 tablet 0 0 Active tabletIndications: mouth every 8 Fall, initial (eight) hours as encounter, Right wrist needed for Pain. pain, Contusion of right wrist, initial encounter, Acute pain of right knee, Abdominal pain, unspecified abdominal location ferrous sulfate 325 mg Take 1 tablet by 90 tablet 0 08/27/2019 Active (65 mg iron) mouth 3 (three) tabletIndications: times daily with Other iron deficiency meals. anemia Leg Brace S72.001A/Z98.890/M79.98 1 Each 0 08/27/2019 Active MiscIndications: Closed fracture of neck of Comfort leg/foot brace (shanna fy to fit RLE). Apply daily to Right Lower Extremity right femur, initial Custom Brand: Transcend encounter, S/P ORIF (open reduction Dispense #1 as covered by patient's insurance internal fixation) fracture, Swelling of right lower extremity CLOPIDOGREL 75 mg Take 1 tablet by 90 tablet 0 09/28/2019 Active tabletIndications: mouth once daily History of stroke, Hemiparesis affecting right side as late effect of cerebrovascular accident (CVA) documented as of this encounter (statuses as of 10/01/2019) Active Problems Problem Noted Date Swelling of [...] Added automatically from request for jaqueline mares [id number] documented as of this encounter (statuses as of 10/01/2019) Social History Tobacco Use Types Packs/Day Years Used Date Former Smoker Smokeless Tobacco: Never Used Alcohol Use Drinks/Week oz/Week Comments Yes Sex Assigned at Date Recorded Not on file documented as of this encounter Last Filed Vital Signs Not on filedocumented in this encounter Miscellaneous Notes Telephone Encounter - Catalina Thurston - 09/29/2019 1:07 PM CDTMOP is calling regarding the patient refill request and is stating that the patient is out of medication and is requesting for them to be sent to the pharmacy as soon as possible. documented in this encounter Plan of Treatment Date Type Specialty Care Team Description 10/12/2019 Telemedicine Visit Family Medicine Azael Jama MD [address] [place] [address] Dr [address] [place] [address] [phone] 11/18/2019 Office Visit Family Medicine Mohan Raphael MD [address] [place] [phone] 11/27/2019 Office Visit Family Medicine Juancarlos Jama MD [address] [place] [address] Dr Jackson [address] [place] [phone] Health Maintenance Due Date Last Done Comments [...] as late effect of cerebrovascular accident (CVA) Other iron deficiency anemia documented in this encounter Insurance Payer Benefit Plan / Subscriber ID Effective Dates Phone Addre ss Type Group HUMANA - HUMANA [id number] 2018-[facility] MANAGED MEDICARE t FFS MEDICARE documented as of this encounter
--- OUTSIDE RECORDS SUMMARY | 2019-10-27 11:16 | XMS REPORT | Summary of Care ---
:1965 Author Organization [facility] Address [address] [place] [address] Care Team Providers Name Role Phone Juancarlos Jama MD Primary Care Provider Reason for Visit Reason Comments Follow-up s/p ORIF Weakness Fall Anemia Encounter Details Date Type Department Care Team Description 10/12/2019 Telemedicine Visit [facility] [place], S/P ORIF (open reduction internal fixation) fracture (Primary Dx); Pediatric and MD Juancarlos Closed fracture of neck of right femur, sequela; Adult Primary [facility] Fall, seque la; [address] Hemiparesis affecting right side as late effect of cerebrovascular accident (CVA); [address] [place] [address] [address] Swelling of right lower extremity; Drive, [address] [place], [place] [phone] Allergies No Known Allergiesdocumented as of this encounter (statuses as of 10/12/2019) Medications Medication Sig Dispensed Refills Start Date [...] right knee, Abdominal pain, unspecified abdominal location Leg Brace S72.001A/Z98.890/M79.98 1 Each 0 08/27/2019 Active MiscIndications: Closed fracture of neck of Comfort leg/foot brace (shanna fy to fit RLE). Apply daily to Right Lower Extremity right femur, initial Custom Brand: Transcend encounter, S/P ORIF (open reduction Dispense #1 as covered by patient's insurance internal fixation) fracture, Swelling of right lower extremity clopidogreL 75 mg Take 1 tablet by 90 tablet 0 10/02/2019 Active tabletIndications: mouth daily. History of stroke, Hemiparesis affecting right side as late effect of cerebrovascular accident (CVA) ferrous sulfate 325 mg Take 1 tablet by 90 tablet 0 10/02/2019 Active (65 mg iron) mouth 3 (three) tabletIndications: times daily with Other iron deficiency meals. anemia documented as of this encounter (statuses as of 10/12/2019) Active Problems Problem Noted Date Swelling of right lower extremity 08/27/2019 Other iron deficiency anemia 08/27/2019 S/P ORIF (open reduction internal fixation) fracture 0 08/06/2019 Fall, initial encounter 07/15/2019 Right wrist pain 07/15/2019 Contusion of right wrist, initial encounter 07/15/2019 Acute pain of right knee 07/15/2019 Abdominal pain, unspecified abdominal location 020 Closed fracture of neck of right femur, sequela 2019 Pure hypertriglyceridemia 07/14/2019 Hemiparesis of right dominant [...] Added automatically from request for jaqueline mares [id number] documented as of this encounter (statuses as of 10/12/2019) Social History Tobacco Use Types Packs/Day Years Used Date Former Smoker Smokeless Tobacco: Never Used Alcohol Use Drinks/Week oz/Week Comments Yes Sex Assigned at Date Recorded Not on file COVID-19 Exposure Response Date Recorded In the last month, have you been in contact Unable to assess 10/12/2019 7:59 AM CDT with someone who was confirmed or suspected to have Coronavirus / COVID-19? documented as of this encounter Last Filed Vital Signs Not on filedocumented in this encounter Patient Instructions Patient InstructionsEdJuancarlos finney MD - 10/12/2019 2:00 PM CDT Patient Education FallPrevention Falls often occur due to slipping, tripping or losing your balance. Millions of people fall every year and injure themselves.Here are ways to reduce your risk of falling again. Think about your fall, was there anything that caused your fall that can be fixed, removed, or replaced? Make your home safe by keeping walkways clear of objects you may trip over, such as electric cords. Use non-slip pads under rugs. Don't use area rugs or small throw rugs. Use non-slip mats in bathtubs and showers. Install handrails and lights on staircases. The handrails should be on both sides of the stairs. Don't walk in poorly lit areas. Don't stand on chairs or wobbly ladders. Use caution when reaching overhead or looking upward.This position can cause a loss of balance. Be sure your shoes fit properly, have non-slip bottoms and are in good condition. Wear shoes both inside and out. Don't go barefoot or wear slippers. Be cautious when going up and down stairs, curbs, and when walking on uneven sidewalks. If your balance is poor, consider using a cane or walker. If your fall was related to alcohol use, stop or limit alcohol intake. If your fall was related to use of sleeping medicines, talk to your healthcare provider about this.You may need to reduce your dosage at bedtime if you awaken during the night to go to the bathroom. To reduce the need for nighttime bathroom trips: ? Don't drink fluids for several hours before going to bed ? Empty your bladder before going to bed ? Men can keep a urinal at the bedside Stay as active as you can. Balance, flexibility, strength, and endurance all come from exercise. They all play a role in preventing falls. Ask your healthcare provider which types of activity are right for you. Get your vision checked on a regular basis. If you have pets, know where they are before you stand up or walk so you don't trip over them. Use night lights. Go over all your medicines with a pharmacist or other healthcare provider to see if any of them could make you more likely to fall. [employer] last reviewed this educational content on 05/19/201719992824-0167 The [employer]. [address] [place] [address]. All rights reserved. This information is not intended as a substitute for professional medical care. Always follow your healthcare professional's instructions. Patient Education After Hip Replacement: Home Safety Becoming more aware of hazards in your home can help make your recovery safer. You might want to have furniture rearranged so its easier to get around. In the bathroom, aids like a shower hose and araised toilet seat can help you stay safe. Dont forget to watch out for hazards like wet floors, loose or worn rugs,electrical cords, or uneven surfaces. [employer] last reviewed this educational content on 02/18/201719994195-9675 The [employer]. [address] [place] [address]. All rights reserved. This information is not intended as a substitute for professional medical care. Always follow your healthcare professional's instructions. documented in this encounter Progress Notes Juancarlos Jama MD - 10/12/2019 2:00 PM CDT TELEMEDICINE CLINIC NOTE DATE OF SERVICE: 10/12/2019 VISIT TYPE: TELEMEDICINE This is a telemedicine visit, with video (doximity) Due to concern for COVID 19 spread, will conduct telemedicine visit today. Verbal consent obtained from Patient: Fred Gautam for telehealth services provided below. Communication with patient was conducted via Video Call. Location of Patient: Home Location of Provider: Home Phone call to patient. Name and identified. Cc: Chief Complaint Patient presents with Follow-up s/p ORIF Weakness Fall Anemia Fred Gautam is a 54 year old male who has a past medical history of Former smoker (03/20/2019), Hyperlipidemia, Seizures, and Stroke presenting for follow- up via telehealth s/p right hip fracture andORIF (07/21/2019)Patient is at home with his mother, who provides history. Patient is at home in the living room, in the company of his mother. Patient completed follow-up with external Surgeon that performed his hip surgery 09/01/2019, noted wound/incision healing well. [facility] reports right ankle weakness, notes his ankle brace will be ready in 2 weeks, had to pay out of pocket (insurance did not cover). [facility] reports that ([facility]) stopped coming to perform PT/OT, is concerned with coverage. Patient previously had PT/OT twice weekly, for weight bearing on the right lower extremity. [facility] reports pain is currently well controlled. He still has residual swelling the right lower extremity. [facility] reports swelling right foot and ankle, reports pain well controlled, patient started on PT/OT per ([facility]). Patient is on Plavix 75mg qDay with ASA 81mg daily, tolerating medications well w/o side -effect. Patient is on Furosamide 20mg qDay for LE edema Allergies Fred has No Known Allergies. Medications Outpatient Medications Prior to Visit Medication Sig Dispense Refill clopidogreL 75 mg tablet Take 1 tablet by mouth daily. 90 tablet 0 ferrous sulfate 325 mg (65 mg iron) tablet Take 1 tablet by mouth 3 (three) times daily with meals. 90 tablet 0 Leg Brace [facility] S72.001A/Z98.890/M79.98 Comfort leg/foot brace (modify to fit RLE). Apply daily to Right Lower Extremity Custom Brand: Transcend Dispense #1 as covered by patient's insurance 1 Each 0 acetaminophen 650 mg CR tablet Take 1 tablet by mouth every 8 (eight) hours as needed for Pain. 60 tablet 0 traMADol 100 mg 24 hr tablet Take 1 tablet by mouth once daily as needed for Pain. 60 tablet 0 docusate (COLACE) 100 mg capsule Take 1 capsule by mouth daily. 90 capsule 1 furosemide 20 mg tablet Take 1 tablet by mouth daily. 30 tablet 11 pravastatin 20 mg tablet Take 1 tablet by mouth at bedtime. 90 tablet 2 propranolol 10 mg tablet Take 1 tablet by mouth 2 (two) times daily. 180 tablet 3 levETIRAcetam 1,000 mg TbSu Take 1,000 mg by mouth 2 (two) times daily. No facility-administered medications prior to visit. Histories Past Medical History: Diagnosis Date Former smoker 03/20/2019 Hyperlipidemia Seizures Stroke Past Surgical History: Procedure Laterality Date CHOLECYSTECTOMY TRANSRECTAL PROSTATE BIOPSY N/A 05/20/2018 Surgeon: Jamie Capps MD; Location: [facility] Social History Socioeconomic History Marital status: Single Spouse name: Not on file Number of children: Not on file Years of education: Not on file Highest education level: Not on file Occupational History Not on file Social Needs Financial resource strain: Not on file Food insecurity Worry: Not on file Inability: Not on file Transportation needs Medical: Not on file Non-medical: Not on file Tobacco Use Smoking status: Former Smoker Smokeless tobacco: Never Used Substance and Sexual Activity Alcohol use: Yes Drug use: Not on file Sexual activity: Not on file Lifestyle Physical activity Days per week: Not on file Minutes per session: Not on file Stress: Not on file Relationships Social connections Talks on phone: Not on file Gets together: Not on file Attends baptist service: Not on file Active member of club or organization: Not on file Attends meetings of clubs or organizations: Not on file Relationship status: Not on file Intimate partner violence Fear of current or ex partner: Not on file Emotionally abused: Not on file Physically abused: Not on file Forced sexual activity: Not on file Other Topics Concern Not on file Social History Narrative Not on file Family History Problem Relation Age of Onset Depression Mother Hypertension Mother Review of Systems Constitutional: Negative for chills, fever, weight gain and weight loss. Eyes: Negative for visual disturbance. Respiratory: Negative for chest tightness and shortness of breath. Cardiovascular: Negative for chest pain and palpitations. Gastrointestinal: Negative for abdominal pain. Genitourinary: Negative for flank pain. Musculoskeletal: Positive for arthralgias, gait problem, joint swelling and myalgias. Right Hip fracture Skin: Negative for wound. Neurological: Positive for weakness. Negative for tremors. Residual Right-sided weakness Psychiatric/Behavioral: Negative for self-injury. Hematological: Does not bruise/bleed easily. Endocrine: Negative for weight gain and weight loss. Vital Signs There were no vitals taken for this visit. Physical Exam Constitutional: General: He is not in acute distress. Cardiovascular: Comments: No CP or palpitation Pulmonary: Effort: Pulmonary effort is normal. Musculoskeletal: General: Swelling present. Right lower leg: Edema present. Comments: - Stable, pain well controlled s/p right hip surgery - Residual weakness - RLE edema Neurological: Comments: Non communicative. MOP gave hx. Patient is in chair/reclyner in living room at home Psychiatric: Behavior: Behavior normal. Imaging reviewed and discussed KUB: 07/15/2019 HISTORY: Fall, abdominal pain Fall, abdominal pain TECHNIQUE:KUB radiograph is obtained. FINDINGS: Small amount of fecal material is present in the ascending colon. There is no evidence of bowel obstruction. Cholecystectomy clips are present in the right upper quadrant of the abdomen. Changes of spondylosis and facet degenerative disease are seen in the lower lumbar spine. Degenerative changes are seen in both hip joints. Fracture of the right femoral neck is suspected. IMPRESSION 1. No acute intra-abdominal findings 2. Fracture of the right femoral neck. Assessment/Plan Closed fracture of neck of right femur, subsequent encounter - s/p f/u with external Ortho. Pain well controlled, residual swelling noted RLE s/p right femoral surgery (ORIF), complicated by hx hemiparesis affecting right side as late effect of cerebrovascular accident (CVA) - Patient not getting PT/OT, last was 3 week ago - Residual weakness noted, fall precautions discussed. - Need for continued PT/OT per HH - Continue Tramadol PRN, Plavix and ASA - Continue with ROSLYN HOSE (Knee Comfort leg/foot brace (modify to fit RLE). 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 S/P ORIF (open reduction internal fixation) fracture Z98.890 V45.89 Z87.81 V15.51 2. Closed fracture of neck of right femur, sequela S72.001S 905.3 3. Fall, sequela W19.XXXS 909.4 E929.3 4. Hemiparesis affecting right side as late effect of cerebrovascular accident (CVA) I69.351 438.20 5. Swelling of right lower extremity M79.89 729.81 6. Other iron deficiency anemia D50.8 280.8 I certify, based on my findings, that the following services are medically necessary: Fdc: Yes - Wound Care - Nurse to evaluate and make recommendations Physical therapy: Yes - Evaluate and Treat Occupational therapy: Yes - Evaluate and Treat Speech language pathology: No Certified Home Health Aid: Yes Home Health Agency Carpenter Foreman: Yes - Evaluate and Treat Fred Gautam has the following additional diagnoses: Patient Active Problem List Diagnosis Prostate nodule Obesity (BMI 30-39.9) History of stroke Hemiparesis affecting right side as late effect of cerebrovascular accident (CVA) Bilateral impacted cerumen Essential hypertension History of seizure Exercise counseling Former smoker Pure hypertriglyceridemia Hemiparesis of right dominant side as late effect of cerebral infarction Constipation, unspecified constipation type Fall, initial encounter Right wrist pain Contusion of right wrist, initial encounter Acute pain of right knee Abdominal pain, unspecified abdominal location Closed fracture of neck of right femur, sequela S/P ORIF (open reduction internal fixation) fracture Swelling of right lower extremity Other iron deficiency anemia I certify my clinical findings/ diagnoses support that this patient is homebound per CMS guidelines: A taxing effort exists for Fred Gautam to leave home due to: Poor endurance due to: S/P Surgery (Right Hip, Residual Weakness, Anemia etc) I certify that this patient is under the care of the [facility] and that I had a edct-bm-dali encounter that meets the CMS [id number] requirements with this patient as noted above. Preventive Care: Medication reconciliation, patient education and anticipatory guidance completed. All questions and concerns addressed. AVS/handout provided. Return in about 4 weeks (around 11/09/2019), or if symptoms worsen or fail to improve. Juancarlos Jama MD, MPH, [facility] Clinical Pneumatic Tool Operator, Department of Family Medicine [facility] Primary & Specialty Care - [facility] 10/12/2019 2:38 PM A total of 20 minutes spent on the telephone with patient/MOP Future Appointments In 1 month Mohan Raphael MD [facility] Family Medicine - [facility] In 1 month Juancarlos Jama MD [facility] Pediatric and Adult Primary Care- [facility] documented in this encounter Plan of Treatment Date Type Specialty Care Team Description 11/18/2019 Office Visit Family Medicine Mohan Raphael MD [address] [place] [phone] 11/27/2019 Office Visit Family Medicine Juancarlos Jama MD [address] [place] [address] Dr [address] [place], [place] [address] Health Maintenance Due Date Last Done Comments [...] filedocumented in this encounter Visit Diagnoses Diagnosis S/P ORIF (open reduction internal fixati on) fracture - Primary Closed fracture of neck of right femur, sequela Fall, sequela Hemiparesis affecting right side as late effect of cerebrovascular accident (CVA) Swelling of right lower extremity Swelling of limb Other iron deficiency anemia documented in this encounter Insurance Payer Benefit Plan / Subscriber ID Effective Dates Phone Addre ss Type Group HUMANA - HUMANA [id number] 2018-[facility] MANAGED MEDICARE t FFS MEDICARE documented as of this encounter
--- OUTSIDE RECORDS SUMMARY | 2019-10-27 11:16 | XMS REPORT | Summary of Care ---
:1965 Author Organization [facility] Address [address] [place] [address] Care Team Providers Name Role Phone Jaki Jama MD Primary Care Provider Reason for Visit Reason Comments Refill Request Encounter Details Date Type Department Care Team Description 09/28/2019 Refill [facility] Pediatric and Jaki Quijano MD Refill Request Adult Primary Care- [address] Elise Manuel [address] [place] [address] [address] [place] [address] [phone] Allergies No Known Allergiesdocumented as of this encounter (statuses as of 10/02/2019) Medications Medication Sig Dispensed Refills Start End Date Status Date levETIRAcetam 1,000 Take 1,000 mg 0 Active mg TbSu by mouth 2 (two) times daily. furosemide 20 mg Take 1 tablet 30 tablet 11 Active tabletIndications: by mouth 0 Essential daily. hypertension propranolol 10 mg Take 1 tablet 180 tablet 3 Active tabletIndications: by mouth 2 0 Essential (two) times hypertension daily. pravastatin 20 mg Take 1 tablet 90 tablet 2 Active tabletIndications: by mouth at 0 Mixed hyperlipidemia bedtime. docusate (COLACE) Take 1 90 capsule 1 A ctive 100 mg capsule by 0 capsuleIndications: mouth daily. Constipation, unspecified constipation type traMADol 100 mg 24 Take 1 tablet 60 tablet 0 Active hr by mouth once 0 tabletIndications: daily as Fall, initial needed for encounter, Right Pain. wrist pain, Contusion of right wrist, initial encounter, Acute pain of right knee, Abdominal pain, unspecified abdominal location acetaminophen 650 mg Take 1 tablet 60 tablet 0 Active CR by mouth 0 tabletIndications: every 8 Fall, initial (eight) hours encounter, Right as needed for wrist pain, Pain. Contusion of right wrist, initial encounter, Acute pain of right knee, Abdominal pain, unspecified abdominal location Leg Brace S72.001A/Z98.890/M79.98 1 Each 0 Active MiscIndications: 0 Closed fracture of Comfort leg/foot brace (shanna fy to fit RLE). Apply daily to Right Lower Extremity neck of right femur, Custom Brand: Transcend initial encounter, S/P ORIF (open Dispense #1 as covered by patient's insurance reduction internal fixation) fracture, Swelling of right lower extremity clopidogreL 75 mg Take 1 tablet 90 tablet 0 Active tabletIndications: by mouth 0 History of stroke, daily. Hemiparesis affecting right side as late effect of cerebrovascular accident (CVA) ferrous sulfate 325 Take 1 tablet 90 tablet 0 Active mg (65 mg iron) by mouth 3 0 tabletIndications: (three) times Other iron daily with deficiency anemia meals. ferrous sulfate 325 Take 1 tablet 90 tablet 0 Discontinued mg (65 mg iron) by mouth 3 0 20 (Re order) tabletIndications: (three) times Other iron daily with deficiency anemia meals. CLOPIDOGREL 75 mg Take 1 tablet 90 tablet 0 10/02/19 Discontinued tabletIndications: by mouth once 0 20 (Reorder) History of stroke, daily Hemiparesis affecting right side as late effect of cerebrovascular accident (CVA) documented as of this encounter (statuses as of 10/02/2019) Active Problems Problem Noted Date Swelling of [...] Added automatically from request for jaqueline mares [id number] documented as of this encounter (statuses as of 10/02/2019) Social History Tobacco Use Types Packs/Day Years Used Date Former Smoker Smokeless Tobacco: Never Used Alcohol Use Drinks/Week oz/Week Comments Yes Sex Assigned at Date Recorded Not on file documented as of this encounter Last Filed Vital Signs Not on filedocumented in this encounter Miscellaneous Notes Addendum Note - Jaki Jama MD - 10/02/2019 2:29 PM CDT Addended by: JAKI JAMA on: 10/02/2019 02:29 PM Modules accepted: Orders Telephone Encounter - Catalina Thurston - 09/29/2019 1:07 PM CDTMOP is calling regarding the patient refill request and is stating that the patient is out of medication and is requesting for them to be sent to the pharmacy as soon as possible. documented in this encounter Plan of Treatment Date Type Specialty Care Team Description 10/12/2019 Telemedicine Visit Family Medicine Azael Jama MD [address] [place] [address] Dr [address] [place] [address] [phone] 11/18/2019 Office Visit Family Medicine Mohan Raphael MD [address] [place] [address] [address]ro [place] [phone] 11/27/2019 Office Visit Family Medicine Jaki Jama MD [address] [place] [address] [place] [address] [phone] Health Maintenance Due Date Last Done Comments [...] Addre ss Type Group HUMANA - HUMANA [id number] 2018-[facility] MANAGED MEDICARE [facility] documented as of this encounter
--- OUTSIDE RECORDS SUMMARY | 2019-10-27 11:17 | XMS REPORT | Summary of Care ---
:1965 Author Organization [facility] Address [address] [place] [address] Care Team Providers Name Role Phone Juancarlos Jama MD Primary Care Provider Reason for Visit Reason Comments Follow-up s/p ORIF Weakness Fall Anemia Encounter Details Date Type Department Care Team Description 10/12/2019 Telemedicine Visit [facility] Evita, S/P ORIF (open reduction internal fixation) fracture (Primary Dx); Pediatric and MD Juancarlos Closed fracture of neck of right femur, sequela; Adult [facility], seque la; [address] Hemiparesis affecting right side as late effect of cerebrovascular accident (CVA); [address] [place] [address] Manuel [address] Swelling of right lower extremity; Drive, [address] [place], [place] [phone] Allergies No Known Allergiesdocumented as of this [...] Added automatically from request for jaqueline mares [id number] documented as of this encounter (statuses as [...] could make you more likely to fall. [employer] last reviewed this educational content on 05/19/201719997067-5008 [employer]. [address] [place] [address]. All rights reserved. This information is not [...] or worn rugs,electrical cords, or uneven surfaces. [employer] last reviewed this educational content on 02/18/201719991077-0807 [employer]. [address] [place] [address]. All rights reserved. This information is not [...] hip surgery 09/01/2019, noted wound/incision healing well. [facility] reports right ankle weakness, notes his ankle brace will be ready in 2 weeks, had to pay out of pocket (insurance did not cover). [facility] reports that ([facility]) stopped coming to perform PT/OT, is concerned with coverage. Patient previously had PT/OT twice weekly, for weight bearing on the right lower extremity. [facility] reports pain is currently well controlled. He still has residual swelling the right lower extremity. [facility] reports swelling right foot and ankle, reports pain well controlled, patient started on PT/OT per ([facility]). Patient is on Plavix 75mg qDay with [...] with meals. 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 on 10/12/2019 for the following medical conditions [...] that the following services are medically necessary: Nursing Home: Yes - Wound Care - Nurse to evaluate and make recommendations Physical therapy: Yes - Evaluate and Treat Occupational therapy: Yes - Evaluate and Treat Speech language pathology: No Certified Home Health Aid: Yes Home Health Agency Bed Setter: Yes - Evaluate and Treat Fred Gautam [...] patient is under the care of the [facility] and that I had a nwhp-cu-vmte encounter that meets the CMS wxvp-mw-xown requirements with this patient as noted above. Preventive Care: Medication reconciliation, patient education and anticipatory guidance completed. All questions and concerns addressed. AVS/handout provided. Return in about 4 weeks (around 11/09/2019), or if symptoms worsen or fail to improve. Juancarlos Jama MD, MPH, [facility] Clinical Director Of Curriculum, Department of Family Medicine [facility] Primary & Specialty Care - [facility] 10/12/2019 2:38 PM A total of 20 minutes spent on the telephone with patient/MOP Future Appointments In 1 month Mohan Raphael MD [facility] Family Medicine - [facility] In 1 month Juancarlos Jama MD [facility] Pediatric and Adult Primary Care- [facility] documented in this encounter Plan of Treatment Date Type Specialty Care Team Description 11/18/2019 Office Visit Family Medicine Mohan Raphael MD [address] [place] [phone] 11/27/2019 Office Visit Family Medicine Juancarlos Jama MD [address] [place] [address] Dr [address] [place], [place] [address] Health Maintenance Due Date [...] Addre ss Type Group HUMANA - HUMANA [id number] 2018-[facility] Adv MANAGED MEDICARE t FFS MEDICARE documented as of this encounter
--- OUTSIDE RECORDS SUMMARY | 2019-10-27 11:17 | XMS REPORT | Summary of Care ---
:1965 Author Organization [facility] Address [address] [place] [address] Care Team Providers Name Role Phone Juancarlos Jama MD Primary Care Provider Reason for Visit Reason Comments Social Work Encounter Details Date Type Department Care Team Description 10/12/2019 Patient Outreach [facility] Pediatric Manoj Ovalles Social Work and Adult Primary Care- [address] [place] [address], [address] [place] [phone] Allergies No Known Allergiesdocumented as of this [...] Overview: Added automatically from request for jaqueline suzan [id number] documented as of this encounter (statuses as [...] Signs Not on filedocumented in this encounter Progress Notes Casandra Ovalles - 10/12/2019 4:05 PM CDTSocial work note CLEARING DISTRIBUTION CLERK received a referral to assist patient with HH services. CLEARING DISTRIBUTION CLERK called patient and spoke with sonny to ask for Choice. Care Management Patient Choice Notification Ambulatory Social Work Patient's provider has recommended post-acute care, home health services, and/or durable medical equipment. Based on where Patient resides, and agency service areas, a list was generated from: www.Medicare.gov If post-acute services were recommended, Patient was informed of the following disclosure: [facility] the following facilities/agencies: [facility] (retirement and rehabilitation) On 10/12/2019, Patient chose the following agencies to provide services: [facility] [address] [place] [address] P F [phone] CLEARING DISTRIBUTION CLERK sent referral to [facility]. reported yajaira patient doesn't have other needs at this time. Casandra Ovalles LMSW Sample Washer Shivam Elise and [facility] Department of Care Management Ambulatory Social Work documented in this encounter Plan of Treatment Date Type Specialty Care Team Description 11/18/2019 Office Visit Family Medicine Mohan Raphael MD [address] [place] [address] Iglesia Guerrero [place], [place] [phone] 11/27/2019 Office Visit Family Medicine Juancarlos Jama MD [address] [place] [address] Dr [address]arte [place], [place] [address] [phone] Health Maintenance Due Date Last Done Comments [...] Results Not on filedocumented in this encounter Insurance Payer Benefit Plan / Subscriber ID Effective Dates Phone Addre ss Type Group HUMANA - HUMANA [id number] 2018-[facility] Adv MANAGED MEDICARE t FFS MEDICARE documented as of this encounter
--- OUTSIDE RECORDS SUMMARY | 2019-10-27 11:18 | XMS REPORT | Summary of Care ---
:1965 Author Organization [facility] Address [address] [place] [address] Care Team Providers Name Role Phone Juancarlos Jama MD Primary Care Provider Reason for Visit Reason Comments Notification Encounter Details Date Type Department Care Team Description 10/14/[address] [facility] Pediatric and Juancarlos Quijano MD Notification Adult Primary Care- [address] Elise [address] 146 [place] [address] [address] [place] [address] [phone] Allergies No Known Allergiesdocumented as of this encounter (statuses as of 10/16/2019) Medications Medication Sig Dispensed Refills Start Date [...] as of this encounter (statuses as of 10/16/2019) Active Problems Problem Noted Date Swelling of [...] Overview: Added automatically from request for jaqueline [id number] documented as of this encounter (statuses as of 10/16/2019) Social History Tobacco Use Types Packs/Day Years [...] this encounter Miscellaneous Notes Telephone Encounter - Kira Sanon - 10/14/2019 12:18 PM CDTGregjaney Gautam is a 54 year old male Concha from [facility] is calling to inform provider that patient denied correction and wound from R hip replacement is completed healed. She stated he will be admitted for Physical Therapy.Please Concha if needed at [phone] documented in this encounter Plan of Treatment Date Type Specialty Care Team Description 11/09/2019 Office Visit Family Medicine Juancarlos Jama MD [address] [place] [address] [phone] 11/18/2019 Office Visit Family Medicine Mohan Raphael MD [address] [place] [phone] Health Maintenance Due Date Last Done Comments [...] Addre ss Type Group HUMANA - HUMANA [id number] [facility] Adv MANAGED MEDICARE t FFS MEDICARE documented as of this encounter
--- NOTE | 2019-10-27 11:22 | RAD REPORT ---
EXAM DESCRIPTION: CT - Ct Stroke Brain Wo Cont - 10/27/2019 11:11 am CLINICAL HISTORY: facial weakness Headache, drowsiness, CVA symptomology COMPARISON: No comparisons TECHNIQUE: All CT scans are performed using dose optimization technique as appropriate and may inclu de automated exposure control or mA/KV adjustment according to patient size. FINDINGS: No intracranial hemorrhage, hydrocephalus or extra-axial fluid collection.Fairly large lef t-sided gliosis pattern is seen compatible with old infarct.No areas of brain edema or evidence of mi dline shift. The paranasal sinuses and mastoids are clear. The calvarium is intact. IMPRESSION: No acute intracranial abnormality. Old left-sided infarct changes are present. The findings were discussed with Dr. Garcia On 10/27/2019 at 11:17 a.m. by telephone.
--- NOTE | 2019-10-27 11:30 | RAD REPORT ---
EXAM DESCRIPTION: RAD - Chest Single View - 10/27/2019 11:20 am CLINICAL HISTORY: facial weakness, 2 days old Chest pain. COMPARISON: Chest Single View dated 07/20/2019; CHEST SINGLE VIEW dated 08/05/2010 FINDINGS: Portable technique limits examination quality. The lungs are grossly clear. The heart is normal in size. No displaced fractures. IMPRESSION: No acute intrathoracic process suspected.
[2019-10-27 11:43] LABS: Absolute Lymphocytes (CBC) 0.9 K/uL (0.7-4.9); Basophils % 0.5 % (0-1.3); Hematocrit 42.3 % (39.6-49.0); Lymphocytes % 17.2 % (15.3-44.8); RBC Red Blood Cell Count 4.72 M/uL (4.33-5.43)
[2019-10-27 11:48] LABS: Protime INR 0.97
[2019-10-27 11:59] LABS: Potassium 3.4 mmol/L (3.5-5.1)
--- NOTE | 2019-10-27 12:45 | RAD REPORT ---
EXAM DESCRIPTION: MRI - Brain Wo Cont - 10/27/2019 12:25 pm CLINICAL HISTORY: [facility] COMPARISON: Ct Stroke Brain Wo Cont dated 10/27/2019 TECHNIQUE: Sagittal T1-weighted images were obtained along with axial PD, heavily T2-weighted and T2 -FLAIR images. Axial DWI and ADC mapping sequences were also obtained along with coronal heavily T2-w eighted images. FINDINGS: No intracranial hemorrhage, mass or acute infarction. There is no edema or shift of midlin e structures. No sulcal effacement. Patient has a large area of encephalomalacia involving the tempor al lobe and portions of the frontal lobe on the left. There is adjacent T2/IR surrounding signal abno rmality in the white matter. Left lateral ventricle has enlarged in proportion to the volume loss. No significant atrophy or underlying chronic ischemic change otherwise noted. Signal voids are seen as a normal finding in the major intracranial vessels. No globe or orbital content abnormality. No acute mastoid air cell finding. No air-fluid level in the paranasal sinuses. Patchy frontal sinus mucosal thickening changes are present. IMPRESSION: No infarction or acute intracranial finding seen. Left frontal and temporal encephalomalacia from prior event.
--- NOTE | 2019-10-27 12:52 | ER ---
Nurse's Notes [facility] Name: Fred Gautam Age: 54 yrs Sex: Male : 1965 Arrival Date: 10/27/2019 Time: 10:39 Bed 19 Private MD: Diagnosis: Poole's palsy Presentation: 10/26 10:42 Chief complaint: Patient states: Facial droop since Saturday morning getting slowly ll1 worse. Trouble walking with fatigue for 2 days. Coronavirus screen: Client denies travel out of the [place] in the last 14 days. At this time, the client does not indicate any symptoms associated with coronavirus-19. Ebola Screen: Patient denies travel to an Ebola-affected area in the 21 days before illness onset. Initial Sepsis Screen: Does the patient meet any 2 criteria? No. Patient's initial sepsis screen is negative. Risk Assessment: Do you want to hurt yourself or someone else? Patient reports no desire to harm self or others. Onset of symptoms was October 25, 2019. 10:42 Method Of Arrival: Wheelchair ll1 10:42 Acuity: MARTITA 3 ll1 13:04 No acute neurological deficit is noted. Pre-hospital glucose is not applicable to this jl7 patient. Initial Sepsis Screen: Does the patient have a suspected source of infection? No. Patient's initial sepsis screen is negative. Stroke Activation: Symptom onset > 6 hours Physician: Stroke Attending; Name: ; Notified At: ; Arrived At: Physician: Chief Stroke Resident; Name: ; Notified At: ; Arrived At: Physician: Stroke Resident; Name: ; Notified At: ; Arrived At: Physician: ED Attending; Name: ; Notified At: ; Arrived At: Physician: ED Resident; Name: ; Notified At: ; Arrived At: Historical: - Allergies: 10:45 No Known Allergies; ll1 - PMHx: 10:45 Cancer, prostrate; Hypertension; High Cholesterol; CVA (2005); ll1 - PSHx: 10:45 Appendectomy; Cholecystectomy; hip surgery; ll1 - Immunization history:: Flu vaccine is not up to date. - Social history:: Smoking status: Patient denies any tobacco usage or history of. Patient/guardian denies using alcohol, street drugs. - Family history:: not pertinent. - Hospitalizations: : No recent hospitalization is reported. Screenin:20 Abuse screen: Denies threats or abuse. Denies injuries from another. Nutritional jl7 screening: No deficits noted. Tuberculosis screening: No symptoms or risk factors identified. Fall Risk IV access (20 points). Total Mar Fall Scale indicates No Risk (0-24 pts). Assessment: 11:20 VAN Scoring: Arm Drift: Flaccid/no antigravity Visual Disturbance: No visual jl7 disturbance noted. Aphasia: No aphasia noted. Neglect: No neglect noted. The patient has not been NPO before screening. The patient is currently on the following diet: Regular The patient is alert, and able to follow commands. The patient does not exhibit slurred or garbled speech. The patient is not exhibiting difficulty speaking. The patient does not exhibit difficulty understanding words. The patient is able to swallow own secretions with no drooling or need for suction. Patient tolerated one teaspoon of water. No drooling, immediate coughing, gurgling, or clearing of the throat was noted. The patient did not tolerate 90mL of water. Drooling, immediate coughing, gurgling, or clearing of the throat was noted. Bedside swallow screening discontinued. Patient kept NPO until cleared by Speech Therapy or Physician. The patient failed the bedside swallow screening. The patient will be kept NPO until cleared by Speech Therapy or Physician. Provider notified of bedside swallow screening results: Deepak Garcia MD. T-PA (Activase) Screening: Contraindications: Patient reports onset of signs and symptoms of stroke greater than 6 hours ago:. General: Appears in no apparent distress. uncomfortable. Pain: Denies pain. Neuro: Level of Consciousness is awake, alert, obeys commands, Oriented to person, place, time, situation. Cardiovascular: Denies chest pain, Patient's skin is warm and dry. Respiratory: Airway is patent Respiratory effort is even, unlabored, Respiratory pattern is regular, symmetrical, Denies shortness of breath. GI: No signs and/or symptoms were reported involving the gastrointestinal system. : No signs and/or symptoms were reported regarding the genitourinary system. EENT: No signs and/or symptoms were reported regarding the EENT system. Derm: Skin is pink, warm \T\ dry. Musculoskeletal: No signs and/or symptoms reported regarding the musculoskeletal system. 11:59 Reassessment: Pt to MRI via wheelchair at this time. jl7 12:37 Reassessment: Patient appears in no apparent distress at this time. No changes from jl7 previously documented assessment. Patient and/or family updated on plan of care and expected duration. Pain level reassessed. Patient is alert, oriented x 3, equal unlabored respirations, skin warm/dry/pink. Pt returned from MRI Patient denies pain at this time. Vital Signs: 10:42 BP 127 / 92; Pulse 79; Resp 18; Pulse Ox 100% ; Pain 0/10; ll1 11:55 BP 142 / 98; Pulse 74; Resp 15 S; Temp 98(O); Pulse Ox 100% on R/A; Pain 0/10; jl7 12:37 BP 131 / 91; Pulse 75; Resp 17; Pulse Ox 100% ; Pain 0/10; jl7 NIH Stroke Scale Scores: 11:20 NIHSS Score: 10 jl7 ED Course: 10:39 Patient arrived in ED. mr 10:41 Deepak Garcia MD is Attending Physician. rn 10:44 Triage completed. ll1 10:45 Arm band placed on Patient placed in an exam room, on a stretcher. ll1 11:11 CT Stroke Brain w/o Contrast In Process Unspecified. EDMS 11:12 Daksha Herring, RN is Primary Nurse. jl7 11:20 Stroke CXR 1 View In Process Unspecified. EDMS 11:20 Patient has correct armband on for positive identification. Placed in gown. Bed in low jl7 position. Call light in reach. Side rails up X 1. pvc monitor on. Pulse ox on. NIBP on. Warm blanket given. 11:37 Inserted saline lock: 22 gauge in left forearm, using aseptic technique. Blood ll1 collected. 11:37 Initial lab(s) drawn, by ED staff, sent to lab. jl7 11:58 EKG done, by ED staff, reviewed by Deepak Garcia MD. jl7 12:16 Brain Wo Cont MRI In Process Unspecified. EDMS 12:51 Jason Johns MD is Referral Physician. rn 13:03 No provider procedures requiring assistance completed. IV discontinued, intact, jl7 bleeding controlled, No redness/swelling at site. Pressure dressing applied. Administered Medications: No medications were administered Outcome: 12:51 Discharge ordered by MD. rn 13:03 Discharged to home via wheelchair, with family. jlXimena 13:03 Condition: stable 13:03 Discharge instructions given to patient, family, Instructed on discharge instructions, follow up and referral plans. medication usage, Demonstrated understanding of instructions, follow-up care, medications, Prescriptions given X 2. 13:04 Patient left the ED. jl7 NIH Stroke Scale - NIH Stroke Score Date: 10/27/2019 Time: 11:20 Total Score = 10 1a. Level of Consciousness (LOC) - 0(Alert) 1b. Level of Consciousness (LOC) (Year \T\ Age) - 0(Both) 1c. LOC Commands (Open \T\ Closes Eyes/Presto Log Operator) - 0(Both) 2. Best Gaze (Lateral Gaze Paresis) - 0(Normal) 3. Visual Field Loss - 0(No visual loss) 4. Facial Palsy - 2(Partial paralysis) 5a. Left Arm: Motor (10-second hold) - 0(No drift) 5b. Right Arm: Motor (10-second hold) - 4(No movement) 6a. Left Leg: Motor (5-second hold - always test supine) - 0(No drift) 6b. Right Leg: Motor (5-second hold - always test supine) - 0(No drift) 7. Limb Ataxia (finger/nose \T\ heel/caldwell - test with eyes open) - 1(Present in one limb) 8. Sensory Loss (pinprick arms/legs/face) - 1(Mild to moderate loss) 9. Best Language: Aphasia (description/naming/reading) - 0(No aphasia) 10. Dysarthria (speech clarity - read or repeat words) - 1(Mild to Moderate) 11. Extinction and Inattention (visual/tactile/auditory/spatial/personal) - 1(Present) Initials: waldo Signatures: Dispatcher [employer] GARY ShawnGoldie Roman, MD MD rn Leal, Jahala RN RN jl7 Marni Tran RN RN ll1 Corrections: (The following items were deleted from the chart) 11:57 11:51 NIHSS Score: 10 waldo haas
--- NOTE | 2019-10-27 12:52 | EDPHYS ---
Physician Documentation [facility] Name: Fred Gautam Age: 54 yrs Sex: Male : 1965 Arrival Date: 10/27/2019 Time: 10:39 Bed 19 Private MD: ED Physician Deepak Garcia HPI: 10/26 10:57 This 54 yrs old Male presents to ER via Wheelchair with complaints of Facial rn Droop. 10:57 The patient presents to the emergency department with weakness of the left side of the rn face. Onset: The symptoms/episode began/occurred 2 day(s) ago. Severity of symptoms: At their worst the symptoms were moderate in the emergency department the symptoms are unchanged. Current symptoms: paralysis or paresis, that is moderate. The patient has experienced a previous episode. 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 Johns. NO head injury. NO vision changes. . Historical: - Allergies: 10:45 No Known Allergies; ll1 - PMHx: 10:45 Cancer, prostrate; Hypertension; High Cholesterol; CVA (2005); ll1 - PSHx: 10:45 Appendectomy; Cholecystectomy; hip surgery; ll1 - Immunization history:: Flu vaccine is not up to date. - Social history:: Smoking status: Patient denies any tobacco usage or history of. Patient/guardian denies using alcohol, street drugs. - Family history:: not pertinent. - Hospitalizations: : No recent hospitalization is reported. ROS: 10:57 Constitutional: Negative for fever, chills, and weight loss, Eyes: Negative for injury, rn pain, redness, and discharge, Neck: Negative for injury, pain, and swelling, Cardiovascular: Negative for chest pain, palpitations, and edema, Respiratory: Negative for shortness of breath, cough, wheezing, and pleuritic chest pain, Abdomen/GI: Negative for abdominal pain, nausea, vomiting, diarrhea, and constipation, MS/Extremity: Negative for injury and deformity, Skin: Negative for injury, rash, and discoloration, Neuro: Negative for headache, numbness, tingling, and seizure. Exam: 10:57 Constitutional: This is a well developed, well nourished patient who is awake, alert, rn and in no acute distress. Head/Face: Normocephalic, atraumatic. Neck: Trachea midline, No Meningismus. Cardiovascular: Regular rate and rhythm. No pulse deficits. Respiratory: No increased work of breathing, no retractions or nasal flaring. Abdomen/GI: soft, non-tender MS/ Extremity: Pulses equal, no cyanosis. Neurovascular intact. Neuro: Awake and alert, GCS 15, oriented to person, place, time, and situation. + left upper and lower facial weakness, unable to close left eye or raise left eyebrow. + RUE weakness, drops immediately to bed, RLE 3+/5, LUE/LLE 5/5 strength and intact sensation. + moderate dysarthria with difficulty understanding what he is saying. Other than left facial weakness, family confirms other symptoms are from old stroke and not new. Vital Signs: 10:42 BP 127 / 92; Pulse 79; Resp 18; Pulse Ox 100% ; Pain 0/10; ll1 11:55 BP 142 / 98; Pulse 74; Resp 15 S; Temp 98(O); Pulse Ox 100% on R/A; Pain 0/10; jl7 12:37 BP 131 / 91; Pulse 75; Resp 17; Pulse Ox 100% ; Pain 0/10; jl7 NIH Stroke Scale Scores: 11:20 NIHSS Score: 10 jl7 MDM: 10:41 Patient medically screened. rn 11:19 ED course: No acute findings on CT per Dr. Cervantes. . rn 12:49 Data reviewed: vital signs, nurses notes, lab test result(s), EKG, radiologic studies, rn CT scan, MRI, and as a result, I will discharge patient. Counseling: I had a detailed discussion with the patient and/or guardian regarding: the historical points, exam findings, and any diagnostic results supporting the discharge/admit diagnosis, lab results, radiology results, the need for outpatient follow up, to return to the emergency department if symptoms worsen or persist or if there are any questions or concerns that arise at home. Special discussion: I discussed with the patient/guardian in detail that at this point there is no indication for admission to the hospital. It is understood, however, that if the symptoms persist or worsen the patient needs to return immediately for re-evaluation. Based on the history and exam findings, there is no indication for further emergent testing or inpatient evaluation. I discussed with the patient/guardian the need to see the neurologist for further evaluation of the symptoms. ED course: CT head and MRI brain neg for acute findings/infarct, symptoms most likely 2/2 Poole's Palsy. Will dc home with antiviral/steroid/and given instructions on taping left eye shut to prevent corneal problems. family and patient understand instructions, and will f/u with Dr. Johns. . 10/26 10:57 Order name: Basic Metabolic Panel; Complete Time: 12:14 rn 10/26 10:57 Order name: CBC with Diff; Complete Time: 12:14 rn 10/26 10:57 Order name: Protime (+inr); Complete Time: 12:14 rn 10/26 10:57 Order name: Ptt, Activated; Complete Time: 12:14 rn 10/26 10:57 Order name: CT Stroke Brain w/o Contrast; Complete Time: 11:33 rn 10/26 10:57 Order name: Stroke CXR 1 View; Complete Time: 11:33 rn 10/26 10:57 Order name: Accucheck; Complete Time: 11:59 rn 10/26 10:57 Order name: Cardiac monitoring; Complete Time: 11:59 rn 10/26 10:57 Order name: EKG - Nurse/Tech; Complete Time: 11:59 rn 10/26 10:57 Order name: IV Saline Lock; Complete Time: 11:40 rn 10/26 10:57 Order name: Labs collected and sent; Complete Time: 11:40 rn 10/26 10:57 Order name: NPO; Complete Time: 11:40 rn 10/26 11:34 Order name: Brain Wo Cont MRI; Complete Time: 12:49 rn 10/26 10:57 Order name: O2 Per Protocol; Complete Time: 11:40 rn 10/26 10:57 Order name: O2 Sat Monitoring; Complete Time: 11:39 rn 10/26 10:57 Order name: Stroke Swallow Screen; Complete Time: 11:39 rn Administered Medications: No medications were administered Disposition: 10/27/19 12:51 Discharged to Home. Impression: Poole's palsy. - Condition is Stable. - Discharge Instructions: Poole Palsy, Adult. - Prescriptions for Acyclovir 800 mg Oral Tablet - take 1 tablet by ORAL route 5 times per day for 10 days; 50 tablet. Prednisone 20 mg Oral Tablet - take 1 tablet by ORAL route as directed for 10 days Take 3 tablets by mouth once daily for 5 days, then 2 tablets by mouth once daily for 3 days, followed by 1 tablet by mouth once daily for 2 days, total of 10 days.; 23 tablet. - Medication Reconciliation Form, Thank You Letter, Antibiotic Education, Prescription Opioid Use form. - Follow up: Jason Johns MD; When: 1 week; Reason: Recheck today's complaints, Re-evaluation by your physician. - Problem is new. - Symptoms are unchanged. NIH Stroke Scale - NIH Stroke Score Date: 10/27/2019 Time: 11:20 Total Score = 10 1a. Level of Consciousness (LOC) - 0(Alert) 1b. Level of Consciousness (LOC) (Year \T\ Age) - 0(Both) 1c. LOC Commands (Open \T\ Closes Eyes/Transformation Architect) - 0(Both) 2. Best Gaze (Lateral Gaze Paresis) - 0(Normal) 3. Visual Field Loss - 0(No visual loss) 4. Facial Palsy - 2(Partial paralysis) 5a. Left Arm: Motor (10-second hold) - 0(No drift) 5b. Right Arm: Motor (10-second hold) - 4(No movement) 6a. Left Leg: Motor (5-second hold - always test supine) - 0(No drift) 6b. Right Leg: Motor (5-second hold - always test supine) - 0(No drift) 7. Limb Ataxia (finger/nose \T\ heel/caldwell - test with eyes open) - 1(Present in one limb) 8. Sensory Loss (pinprick arms/legs/face) - 1(Mild to moderate loss) 9. Best Language: Aphasia (description/naming/reading) - 0(No aphasia) 10. Dysarthria (speech clarity - read or repeat words) - 1(Mild to Moderate) 11. Extinction and Inattention (visual/tactile/auditory/spatial/personal) - 1(Present) Initials: jl7 Signatures: Dispatcher [employer] EDMS Deepak Garcia MD MD rn Leal, Jahala, RN RN jl7 Marni Tran RN RN ll1 Corrections: (The following items were deleted from the chart) 13:04 12:51 10/27/2019 12:51 Discharged to Home. Impression: Poole's palsy. Condition jl7 is Stable. Forms are Medication Reconciliation Form, Thank You Letter, Antibiotic Education, Prescription Opioid Use. Follow up: Jason Johns; When: 1 week; Reason: Recheck today's complaints, Re-evaluation by your physician. Problem is new. Symptoms are unchanged. rn
[2019-10-27 17:05] VITALS: O2SAT 100
[2019-10-27 17:06] VITALS: TEMP 98
[2019-10-27 17:08] VITALS: BP 131/91
--- NOTE | 2019-10-29 05:59 | EKG ---
Test Date: 2019-10-27 Test Time: 11:44:13 [employer] Teacher: NATALIO MEASUREMENT RESULTS: Intervals: Rate: 73 NV: 194 QRSD: 98 QT: 444 QTc: 489 [place]: P: 43 NV: 194 QRS: -3 T: 47 INTERPRETIVE STATEMENTS: Normal sinus rhythm Prolonged QT Abnormal ECG Compared to ECG 07/20/2019 17:58:34 Right-axis deviation no longer present ST (T wave) deviation no longer present Electronically Signed On 10-29-19 05:55:42 CDT by Byron Tam
== END 2019-10-27 13:04 | disposition home or self-care (01) ==
LOC: ER 10:36
DX: G51.0 Bell's palsy (principal); I10 Essential (primary) hypertension; Z85.46 Personal history of malignant neoplasm of prostate; Z86.73 Personal history of transient ischemic attack (TIA), and cerebral infarction without residual deficits
CPT/HCPCS: 36415; 70450; 70551; 71045; 80048; 85025; 85610; 85730; 93005; 99284